=== PATIENT | male | born 1945 | race Caucasian/White ===

== ENCOUNTER 2018-03-06 13:40 | Emergency (ER) | payer MEDICARE, BC ==
[2018-03-06 13:55] VITALS: BP 153/68
--- NOTE | 2018-03-06 13:59 | UC ---
Throat Pain/Nasal Terry HPI - HPI Summary HPI Summary: 73 yo male presents with sore throat that began 3 days ago. Pain is getting worse. He is worried that he might have strep. Is able to eat and drink, but does have pain. Denies fever, chills, cough, SOB, chest pain, abdominal pain, n/ v. - History of Current Complaint Chief Complaint: UCGeneralIllness Stated Complaint: SORE THROAT Time Seen by Provider: 03/06/18 13:57 Hx Obtained From: Patient Onset/Duration: Sudden Onset Severity: Severe Pain Intensity: 8 Pain Scale Used: 0-10 Numeric - Allergies/Home Medications Allergies/Adverse Reactions: Allergies Allergy/AdvReac Type Severity Reaction Status Date / Time codeine Allergy Nausea And Verified 03/06/18 13:55 Vomiting Home Medications: Home Medications Metoprolol Succinate XL TAB* [Toprol XL TAB*] 100 mg PO BID 03/06/18 [History Confirmed 03/06/18] Conway-3/Dha/Epa/Fish Oil [Conway 3 500 500 mg] 1 cap PO DAILY 03/06/18 [History Confirmed 03/06/18] PMH/Surg Hx/FS Hx/Imm Hx - Additional Past Medical History Additional PMH: BPH Endocrine History: Dyslipidemia Cardiovascular History: Hypertension - Surgical History Surgical History: Yes Surgery Procedure, Year, and Place: 2009 cardiac. 03/2012 discectomy neck - Family History Known Family History: Positive: Hypertension - Social History Occupation: Retired Lives: With Family Alcohol Use: None Substance Use Type: None Smoking Status (MU): Former Smoker - Immunization History Most Recent Influenza Vaccination: none Review of Systems Constitutional: Negative Skin: Negative Eyes: Negative ENT: Sore Throat Respiratory: Negative Cardiovascular: Negative Neurovascular: Negative Neurological: Negative Psychological: Negative All Other Systems Reviewed And Are Negative: Yes Physical Exam - Summary Physical Exam Summary: GENERAL: NAD. WDWN. No pain distress. SKIN: No rashes, sores, lesions, or open wounds. HEENT: Head: AT/NC Eyes: Conjunctiva clear without inflammation or discharge. Ears: Hearing grossly normal. TMs intact, no bulging, erythema, or edema. Nose: Nasal mucosa pink and moist. NTTP maxillary and frontal sinus. Throat: Posterior oropharynx without erythema or tonsillar enlargement. Mild edema right oropharynx. No exudates. Uvula midline. No hoarse voice or muffled voice. NECK: Supple. 1.0cm right tonsillar LAD TTP. CHEST: CTAB. No r/r/w. No accessory muscle use. Breathing comfortably and in no distress. CV: RRR. Without m/r/g. Pulses intact. Brisk cap refill. NEURO: Alert. CN II-XII grossly intact. PSYCH: Age appropriate behavior. Triage Information Reviewed: Yes Vital Signs: Initial Vital Signs Temp 99.4 F 03/06/18 13:52 Pulse 80 03/06/18 13:52 Resp 14 03/06/18 13:52 BP 153/68 03/06/18 13:52 Pulse Ox 97 03/06/18 13:52 Throat Pain/Nasal Course/Dx - Course Course Of Treatment: POC strep negative. Low suspicion for abscess, but will cover with amoxicillin. Rx for magic mouthwash for pain. F/u if no improvement - Differential Dx/Diagnosis Provider Diagnoses: Pharyngitis Discharge - Sign-Out/Discharge Documenting (check all that apply): Discharge/Admit/Transfer - Discharge Plan Condition: Stable Disposition: HOME Prescriptions: Amoxicillin PO (*) [Amoxicillin 500 MG CAP*] 500 mg PO Q12H #14 cap Magic Mouth Was-DEE/MAAL/LIDO* 5 ml SWISH SWAL QID PRN #100 ml PRN Reason: Pain Patient Education Materials: Pharyngitis (ED) Referrals: Jason Wilkins DO [Primary Care Provider] - Additional Instructions: If you develop a fever, shortness of breath, chest pain, new or worsening symptoms - please call your PCP or go to the ED. Your blood pressure was high at todays visit. Please see your primary provider within 4 weeks for recheck and re-evaluation. - Billing Disposition and Condition Condition: STABLE Disposition: HOME
== END 2018-03-06 14:22 | disposition home or self-care (01) ==
LOC: UCCORT 13:40
DX: J02.9 Acute pharyngitis, unspecified (principal); Z88.5 Allergy status to narcotic agent; I10 Essential (primary) hypertension; Z87.891 Personal history of nicotine dependence
CPT/HCPCS: 87651; 99212; G0463

== ENCOUNTER 2019-05-24 19:56 | Emergency (ER) | payer MEDICARE, BC ==
[2019-05-24 20:29] VITALS: BP 130/69
[2019-05-24] MEDS ORDERED: DOXYcycline CAP(*) 100 MG PO ONE (20:48)
--- NOTE | 2019-05-24 20:48 | UC ---
General HPI - HPI Summary HPI Summary: pt found a tick on his abdomen and tried to dig it out with tweezers. he thinks a black spot remains. it may have been attached for 2 days. - History of Current Complaint Chief Complaint: Marla Stated Complaint: TICK Time Seen by Provider: 05/24/19 20:41 Hx Obtained From: Patient Pain Intensity: 0 Associated Signs & Symptoms: Negative: Fever, Weakness - Allergy/Home Medications Allergies/Adverse Reactions: Allergies Allergy/AdvReac Type Severity Reaction Status Date / Time codeine AdvReac Nausea And Verified 05/24/19 20:23 Vomiting Home Medications: Home Medications Aspirin EC TAB* [Ecotrin EC Low Dose 81 MG*] 81 mg PO DAILY 05/24/19 [History Confirmed 05/24/19] Clopidogrel TAB* [Plavix TAB*] 75 mg PO DAILY 05/24/19 [History Confirmed ] Diltiazem CD CAP* [Cardizem CD CAP*] 120 mg PO DAILY 05/24/19 [History Confirmed 05/24/19] Losartan/HCTZ 100/25 (NF) [Hyzaar 100/25 (NF)] 1 tab PO DAILY 05/24/19 [History Confirmed 05/24/19] Moreland-3 Fatty Acids (Nf) [Fish Oil (NF)] 1,000 mg PO DAILY 05/24/19 [History Confirmed 05/24/19] Spironolactone TAB* [Aldactone TAB*] 25 mg PO DAILY 05/24/19 [History Confirmed 05/24/19] Tamsulosin CAP* [Flomax CAP*] 0.4 mg PO BID 05/24/19 [History Confirmed 05/24/19 ] Vitamin THERAPEUTIC TAB* [Theragran TAB*] 1 tab PO DAILY 05/24/19 [History Confirmed 05/24/19] PMH/Surg Hx/FS Hx/Imm Hx - Additional Past Medical History Additional PMH: BPH Cardiovascular History: Hypertension, Other - CAD - Surgical History Surgical History: Yes Surgery Procedure, Year, and Place: 2009 cardiac. 03/2012 discectomy neck - Family History Known Family History: Positive: Hypertension - Social History Lives: With Family Alcohol Use: None Substance Use Type: None Smoking Status (MU): Never Smoked Tobacco - Immunization History Most Recent Influenza Vaccination: none Review of Systems All Other Systems Reviewed And Are Negative: No Constitutional: Negative: Fever, Chills, Fatigue Skin: Negative: Rash Physical Exam Triage Information Reviewed: Yes Appearance: Well-Appearing Vital Signs: Initial Vital Signs Temp 98.5 F 05/24/19 20:20 Pulse 68 05/24/19 20:20 Resp 16 05/24/19 20:20 BP 130/69 05/24/19 20:20 Pulse Ox 99 05/24/19 20:20 Vital Signs Reviewed: Yes Musculoskeletal: Positive: ROM Intact Neurological: Positive: Alert Psychological: Positive: Age Appropriate Behavior Skin Exam: Normal, Other - pt has a deep abrasion to his upper abdomen with scant clear fluid/bldding. No black specs seen. Course/Dx - Course Course Of Treatment: wound washed with soap and water. - Diagnoses Provider Diagnosis: Tick bite of abdominal wall Discharge - Sign-Out/Discharge Documenting (check all that apply): Patient Departure All imaging exams completed and their final reports reviewed: No Studies - Discharge Plan Condition: Stable Disposition: HOME Patient Education Materials: Tick Bite (ED) Referrals: Jason Wilkins DO [Primary Care Provider] - If Needed - Billing Disposition and Condition Condition: STABLE Disposition: Home
--- OUTSIDE RECORDS SUMMARY | 2019-05-24 23:31 | XMS REPORT | Continuity of Care Document ---
:1945 External Reference #:[id number] Author Name Mickey Aguilera M.D., [facility] Address [address] [place] [address] Care Team Providers Name Role Phone Jason Wilkins, Care Team Information Phy Therapist Unavailable Jason Wilkins, Primary Care Physician Unavailable Payers Date Identification Numbers Payment Provider Subscriber Policy Number: [id number] Medicare Lyle D Nelson PayID: [id number] [address] [place] [address] Policy Number: [id number] [facility] Rick Gunter PayID: [id number] [address] [address] [place] [address] Effective: 2012 Policy Number: [id number] Medicare Lyle D Nelson Expires: 2019 PayID: [id number] [address] [facility] [place] [address] Effective: 2009 Policy Number: [id number] [facility] Rick Gunter Expires: 2011 PayID: [id number] [address] [address] [place] [address] Problems Active Problems Provider Date Hyperlipidemia Lalo Carlos MD, PhD Onset: 02/17/2011 Benign essential hypertension Lalo Carlos MD, PhD Onset: 02/17/2011 Coronary arteriosclerosis Lalo Carlos MD, PhD Onset: 02/17/2011 Chest pain Lalo Carlos MD, PhD Onset: 12/14/2012 Abnormal results of cardiovascular Lalo Carlos MD, PhD Onset: 12/14/2012 function studies Palpitations Selene Soares ANP Onset: 12/14/2012 Lymphedema Selene Soares ANP Onset: 03/28/2014 Syncope and collapse Mickey Aguilera M.D., Onset: 10/22/2018 [facility] Dyspnea Mickey Aguilera M.D., Onset: 09/29/2018 [facility] Essential hypertension Ale Becker, MSN, Onset: 01/01/2016 DUL[facility]ER Left bundle branch block Mickey Aguilera M.D., Onset: 11/09/2014 [facility] Family History Date Family Member(s) Observation Comments General No known family history of CAD. Social History Type Date Description Comments Sex Unknown Lives With Teresa Cruz Patient follows no dietary restrictions Occupation Retired ADL's/IADL's Independent with all IADL's ADL's/IADL's Independent with all ADL's ETOH Use Denies alcohol use Tobacco Use Start: Unknown Patient does not smoke Smoking Status Reviewed: 05/12/19 Patient does not smoke Allergies, Adverse Reactions, Alerts Active Allergies Reaction Severity Comments Date Narcotics 11/09/2014 Medications Active Medications SIG Qnty Indications Ordering Provider Date Spironolactone 1 by mouth 30tabs Mickey Aguilera 01/24/2019 25mg Tablets every day Anaya Gambino, [facility] Losartan 1 by mouth 90tabs Mickey Aguilera 10/22/2018 Potassium/Hydrochlorothi every day Anaya Gambino, [facility] azide 100-25mg Tablets Plavix 1 by mouth 7tabs Mickey Aguilera 09/29/2018 75mg Tablets every day Anaya Gambino, [facility] Atorvastatin Calcium 1 by mouth 90tabs E78.4 Mickey Aguilera 02/06/2016 20mg every day Anaya Gambino, [facility] Tablets Multi For Him 1 by mouth Unknown Tablets every day Tamsulosin HCL 1 by mouth 30caps Unknown 0.4mg Capsules twice a day Fish Oil 3 by mouth Unknown 1200mg Capsules every day Aspirin Adult Low Dose 1 by mouth Unknown 81mg every day Tablets DR Dilt-XR 1 by mouth 90caps I49.3 Mickey Aguilera 240mg Caps ER 24HR every day Anaya Gambino, [facility] History Medications Metoprolol Succinate ER 1 by mouth Mickey Aguilera 10/22/2018 - 25mg every day Anaya Gambino, [facility] 10/22/2018 Tablets ER 24HR Dilt-XR 1 by mouth 90caps I49.3 Mickey Aguilera 01/23/2016 - 120mg Caps ER 24HR every day Anaya Gambino, [facility] 12/01/2018 Gabapentin one po tid 90tabs Herrera Llanes, 12/06/2013 - 600mg Tablets Unknown Gabapentin 1 po tid 42caps Herrera Llanes, 11/22/2013 - 300mg Capsules MD 12/05/2013 Losartan Potassium po qd 90tabs Lalo Carlos, 09/23/2013 - 100mg Tablets MD, PhD 10/22/2018 Ibuprofen po tid prn 20tabs Lalo Carlos, 08/15/2010 - 800mg Tablets , PhD Unknown Atacand Take 1 Tablet 90tabs Lalo Carlos, 08/14/2010 - 8mg Tablets By Mouth Every , PhD Unknown Day Vitamin B-12 1 by mouth Unknown - 500mcg Tablets Sub every day Unknown Complete Prostate (OTC) 2 tabs daily. Unknown - Unknown Coq10 St-100 1 po daily Unknown - [id number] Unknown Capsules Ibuprofen 1 by mouth 30tabs Unknown - 800mg Tablets every 6 hours Unknown as needed for pain use as first line pain control Gabapentin 1/2 tab po tid Unknown - 600mg Tablets Unknown Losartan Potassium 1 po qd 90tabs Unknown - 50mg Tablets 09/23/2013 Gabapentin 1 po tid Unknown - 300mg Capsules Unknown Tramadol HCL 1 po q6h prn 20tabs Unknown - 50mg Tablets Unknown Finasteride 1 po qd 30tabs Unknown - 5mg Tablets Unknown Simvastatin 1 po qhs E78.4 Unknown - 40mg Tablets 02/06/2016 Ramipril 1 po qd Unknown - 5mg Capsules Unknown Omeprazole 1 po qd 30caps Lalo Carlos, - 20mg Capsules DR NARAYAN, PhD Unknown Docusate Sodium 1 po bid Lalo Carlos, - 100mg Capsules , PhD Unknown Aspirin Ec 1 po qd Davidenko, Mickey - 325mg Tablets DR Maki M.D., FACC Unknown Simvastatin 1 po qd 30tabs Julianenko, Mickey - 20mg Tablets Anaya Gambino, FACC 02/17/2011 Baby Aspirin 1 po qd Davidenko, Mickey - 81mg Chewtabs Anaya Gambino, FACC Unknown Ramipril 1 po qd 30caps Julianenko, Mickey - 10mg Capsules Anaya Gambino, FACC Unknown Multivitamins 1 po qd Davidenko, Mickey - Tablets Anaya Gambino, FACC Unknown Fish Oil po bid Davidenko, Mickey - 1000mg Capsules Anaya Gambino, FACC 09/29/2018 Metoprolol Succinate ER 1 po bid Davidenko, Mickey - 100mg Anaya Gambino, FACC 10/22/2018 Tablets ER 24HR Hydrochlorothiazide 1 po qd 30caps Julianenko, Mickey - 12.5mg Anaya Gambino, FACC Unknown Capsules Tamsulosin HCL po qd Davidenko, Mickey - 0.4mg Capsules Anaya Gambino, FACC Unknown Vital Signs Date Vital Result Comment 05/12/2019 9:45am BP Systolic Sitting Left Arm 133 mmHg BP Diastolic Sitting Left Arm 74 mmHg Heart Rate 69 /min Respiratory Rate 20 /min Weight 251.00 lb O2 % BldC Oximetry 96 % ora 11/08/2018 1:05pm BP Systolic Sitting Left Arm 137 mmHg BP Diastolic Sitting Left Arm 73 mmHg Heart Rate 72 /min Respiratory Rate 16 /min Height 70 inches 5'10" Weight 264.00 lb BMI (Body Mass Index) 37.9 kg/m2 BSA (Body Surface Area) 2.35 m2 [place] body weight in kilograms 75 kg O2 % BldC Oximetry 95 % Ra 10/22/2018 9:58am BP Systolic 149 mmHg BP Diastolic 75 mmHg Heart Rate 61 /min Respiratory Rate 16 /min Height 70 inches 5'10" Weight 265.00 lb BMI (Body Mass Index) 38.0 kg/m2 BSA (Body Surface Area) 2.35 m2 [place] body weight in kilograms 75 kg O2 % BldC Oximetry 98 % 09/29/2018 11:07am BP Systolic Sitting Left Arm 174 mmHg BP Diastolic Sitting Left Arm 88 mmHg Heart Rate 56 /min Respiratory Rate 18 /min Height 70 inches 5'10" Weight 272.00 lb BMI (Body Mass Index) 39.0 kg/m2 BSA (Body Surface Area) 2.38 m2 [place] body weight in kilograms 75 kg O2 % BldC Oximetry 97 % Ora 02/25/2018 2:57pm BP Systolic Sitting Left Arm 154 mmHg BP Diastolic Sitting Left Arm 82 mmHg Heart Rate 50 /min Respiratory Rate 16 /min Height 70 inches 5'10" Weight 266.00 lb BMI (Body Mass Index) 38.2 kg/m2 BSA (Body Surface Area) 2.36 m2 [place] body weight in kilograms 75 kg 02/19/2017 2:42pm BP Systolic Sitting Left Arm 142 mmHg BP Diastolic Sitting Left Arm 80 mmHg Heart Rate 61 /min Respiratory Rate 18 /min Height 70 inches 5'10" Weight 266.00 lb BMI (Body Mass Index) 38.2 kg/m2 BSA (Body Surface Area) 2.36 m2 [place] body weight in kilograms 75 kg 08/07/2016 1:04pm BP Systolic Sitting Left Arm 150 mmHg BP Diastolic Sitting Left Arm 88 mmHg Heart Rate 77 /min Height 70 inches 5'10" Weight 266.00 lb BMI (Body Mass Index) 38.2 kg/m2 BSA (Body Surface Area) 2.36 m2 02/06/2016 9:02am BP Systolic Sitting Left Arm 156 mmHg BP Diastolic Sitting Left Arm 80 mmHg Heart Rate 66 /min Respiratory Rate 16 /min Height 70 inches 5'10" Weight 265.00 lb BMI (Body Mass Index) 38.0 kg/m2 BSA (Body Surface Area) 2.35 m2 01/23/2016 8:08am BP Systolic Sitting Left Arm 168 mmHg our machine 164/83 BP Diastolic Sitting Left Arm 84 mmHg our machine 164/83 Heart Rate 57 /min Respiratory Rate 16 /min Height 70 inches 5'10" Weight 267.00 lb BMI (Body Mass Index) 38.3 kg/m2 BSA (Body Surface Area) 2.36 m2 01/01/2016 8:04am BP Systolic Sitting Left Arm 152 mmHg BP Diastolic Sitting Left Arm 86 mmHg Heart Rate 67 /min Respiratory Rate 16 /min Height 70 inches 5'10" Weight 263.00 lb BMI (Body Mass Index) 37.7 kg/m2 BSA (Body Surface Area) 2.34 m2 05/10/2015 9:36am BP Systolic Sitting Left Arm 162 mmHg BP Diastolic Sitting Left Arm 90 mmHg Heart Rate 64 /min Respiratory Rate 16 /min Height 70 inches 5'10" Weight 257.00 lb BMI (Body Mass Index) 36.9 kg/m2 BSA (Body Surface Area) 2.32 m2 11/09/2014 10:44am BP Systolic Sitting Right Arm 178 mmHg BP Diastolic Sitting Right Arm 86 mmHg Heart Rate 51 /min Respiratory Rate 16 /min Height 70 inches 5'10" Weight 264.00 lb BMI (Body Mass Index) 37.9 kg/m2 BSA (Body Surface Area) 2.35 m2 03/27/2014 8:33am BP Systolic Sitting Left Arm 152 mmHg BP Diastolic Sitting Left Arm 78 mmHg Heart Rate 62 /min Respiratory Rate 16 /min Height 70 inches 5'10" Weight 261.00 lb BMI (Body Mass Index) 37.4 kg/m2 BSA (Body Surface Area) 2.34 m2 BP Systolic Recheck 138 mmHg BP Diastolic Recheck 72 mmHg 11/22/2013 3:02pm BP Systolic Sitting Left Arm 176 mmHg BP Diastolic Sitting Left Arm 86 mmHg Heart Rate 62 /min Respiratory Rate 18 /min Height 70 inches 5'10" Weight 257.00 lb BMI (Body Mass Index) 36.9 kg/m2 BSA (Body Surface Area) 2.32 m2 O2 % BldC Oximetry 97 % 10/13/2013 10:59am BP Systolic Sitting Left Arm 176 mmHg BP Diastolic Sitting Left Arm 94 mmHg Heart Rate 59 /min Height 70 inches 5'10" Weight 253.00 lb BMI (Body Mass Index) 36.3 kg/m2 BSA (Body Surface Area) 2.31 m2 09/23/2013 2:45pm BP Systolic Sitting Right Arm 148 mmHg BP Diastolic Sitting Right Arm 82 mmHg Heart Rate 53 /min Respiratory Rate 18 /min Height 69.25 inches 5'9.25" Weight 258.00 lb BMI (Body Mass Index) 37.8 kg/m2 BSA (Body Surface Area) 2.31 m2 12/13/2012 2:18pm BP Systolic Sitting Left Arm 146 mmHg BP Diastolic Sitting Left Arm 82 mmHg Heart Rate 66 /min Respiratory Rate 16 /min Height 69.25 inches 5'9.25" Weight 253.00 lb BMI (Body Mass Index) 37.1 kg/m2 11/11/2012 10:06am BP Systolic Sitting Right Arm 144 mmHg BP Diastolic Sitting Right Arm 80 mmHg Heart Rate 76 /min Respiratory Rate 16 /min Height 69.25 inches 5'9.25" Weight 250.00 lb BMI (Body Mass Index) 36.6 kg/m2 BP Systolic Recheck 132 mmHg BP Diastolic Recheck 80 mmHg 11/11/2012 3:36pm BP Systolic Sitting Right Arm 144 mmHg BP Diastolic Sitting Right Arm 80 mmHg Heart Rate 76 /min reg Respiratory Rate 16 /min Height 69.25 inches 5'9.25" Weight 250.00 lb BMI (Body Mass Index) 36.6 kg/m2 05/07/2012 2:06pm BP Systolic Sitting Right Arm 138 mmHg BP Diastolic Sitting Right Arm 72 mmHg Heart Rate 76 /min Respiratory Rate 16 /min Height 69.25 inches 5'9.25" Weight 246.00 lb BMI (Body Mass Index) 36.1 kg/m2 03/12/2012 1:20pm BP Systolic Sitting Right Arm 118 mmHg BP Diastolic Sitting Right Arm 58 mmHg Heart Rate 63 /min Respiratory Rate 16 /min Height 69.25 inches 5'9.25" Weight 245.00 lb BMI (Body Mass Index) 35.9 kg/m2 09/25/2011 12:59pm BP Systolic Sitting Left Arm 142 mmHg BP Diastolic Sitting Left Arm 82 mmHg Heart Rate 64 /min regular Respiratory Rate 16 /min Height 69.25 inches 5'9.25" Weight 247.00 lb BMI (Body Mass Index) 36.2 kg/m2 08/21/2011 2:13pm BP Systolic Sitting Right Arm 140 mmHg BP Diastolic Sitting Right Arm 72 mmHg Heart Rate 72 /min Respiratory Rate 16 /min Height 69.25 inches 5'9.25" Weight 245.00 lb BMI (Body Mass Index) 35.9 kg/m2 02/17/2011 2:36pm BP Systolic Sitting Right Arm 132 mmHg BP Diastolic Sitting Right Arm 68 mmHg Heart Rate 72 /min regular Respiratory Rate 16 /min Height 69.25 inches 5'9.25" Weight 240.00 lb BMI (Body Mass Index) 35.2 kg/m2 08/23/2010 8:55am BP Systolic Sitting Left Arm 130 mmHg BP Diastolic Sitting Left Arm 72 mmHg Heart Rate 64 /min Regular Respiratory Rate 16 /min Weight 240.00 lb 07/23/2010 8:33am BP Systolic Sitting Right Arm 124 mmHg BP Diastolic Sitting Right Arm 68 mmHg Heart Rate 60 /min Respiratory Rate 16 /min Height 69.25 inches 5'9.25" Weight 239.00 lb BMI (Body Mass Index) 35.0 kg/m2 06/28/2010 2:32pm Heart Rate 62 /min Respiratory Rate 16 /min Weight 244.00 lb 06/14/2010 1:12pm Heart Rate 60 /min Respiratory Rate 16 /min Weight 239.00 lb Results Test Date Facility Test Result H/L Range Note CBC 04/26/2019 [facility] White Blood 5.1 K/uL Normal 3.4-10.5 1 W/Automated [address] Count Diff [place], [place] [id number] [phone] Red Blood Count 4.78 M/uL Normal 4.20-5.80 Hemoglobin 14.5 gm/dL Normal 12.8-17.0 Hematocrit 41.8 % Normal 38.0-48.0 Mean Cell Volume 87.4 fl Normal 80.0-96.0 Mean Corpuscular HGB 30.3 pg Normal 27.0-33.0 Mean Corpuscular HGB Conc 34.7 g/dL Normal 31.7-36.0 Platelet Count 214 K/uL Normal 155-360 Red Cell Distri Width SD 44.7 fl Normal 36-51 Red Cell Distri Width %CV 13.9 % Normal 11.6-15.8 Mean Platelet Volume 9.4 fl Normal 6.6-10.6 Neut% 50.1 % Normal 33.0-73.0 Lymph % 33.2 % Normal 20.0-42.0 Burt % 12.5 % High 0.0-10.0 Eo% 3.8 % Normal 0.0-6.6 Bas% 0.2 % Normal 0.0-1.1 Immature Grans 0.2 % Normal 0.0-5.0 NRBC % 0.0 /100WBC < 10/ 100 WBC Neut# 2.54 K/uL Normal 1.8-7.0 Lymph # 1.68 K/uL Normal 1.0-4.0 Burt # 0.63 K/uL Normal 0.0-0.8 Eos # 0.19 K/uL Normal 0.0-0.5 Baso # 0.01 K/uL Normal 0.0-0.1 Immature Grans Absolute 0.01 K/uL NRBC # 0.00 K/uL Liver Function 04/26/2019 [facility] Total Protein 7.4 g/dL Normal 6.4-8.2 Tests [address] [place] [address] [phone] Albumin 3.9 g/dL Normal 3.4-5.0 Globulin 3.5 g/dL Normal 1.9-4.3 Alb/Glob 1.1 ratio Bilirubin,Total 0.3 mg/dL Normal 0.2-1.0 Bilirubin,Direct 0.1 mg/dL Normal 0.0-0.2 Bilirubin,Indirect 0.2 mg/dL Normal 0.0-0.9 Sgot/Ast 28 U/L Normal 15-37 SGPT/Alt 42 U/L Normal 12-78 Alkaline Phosphatase 57 U/L Normal 45-117 Basic Metabolic Panel 04/26/2019 [facility] Glucose 107 mg/dL High 74-106 [address] [place] [address] [phone] BUN 25 mg/dL High 7-18 Creatinine 0.8 mg/dL Normal 0.6-1.3 Glom Filtration Rate, Estimate >60 mL/min >60 If >60 mL/min >60 2 BUN/Creat 31.2 ratio Sodium 137 mmol/L Normal 136-145 Potassium 3.9 mmol/L Normal 3.5-5.1 Chloride 104 mmol/L Normal 98-107 Carbon Dioxide 26 mmol/L Normal 21-32 Anion Gap 7 mEq/L Low 8-16 Calcium 9.4 mg/dL Normal 8.5-10.1 LDL Cholesterol Profile 04/26/2019 [facility] Cholesterol 122 mg/dL <200 3 [address] [place] [address] [phone] Triglycerides 54 mg/dL <150 4 HDL Cholesterol 42 mg/dL >40 5 LDL-Cholesterol 69 mg/dL < 100 6 Laboratory test 04/26/2019 [facility] Thyroid Stim 1.83 Normal 0.30-4.[address] Hormone uIU/[place] [address] [phone] Glycohemoglobin 04/26/2019 [facility] Glycohemoglobin 6.2 % Normal 4.2-6.[address] (A1c) [place] [address] [phone] eAG 131 mg/dL Laboratory test finding 10/18/2018 N2N/CCD Import Ao peak richard 1.44 m/s Ao root annulus 3.80 cm Aortic valve mean velocity 0.94 m/s Aortic valve velocity time integral 30.90 cm Av Lvot peak gradient 6.00 mmHg Av Velocity Ratio 0.86 Av mean gradient 4.00 mmHg Av peak gradient 8.00 mmHg Bsa 2.32 m2 Diastolic BP Echo 76.00 mmHg E wave decelartion time 366.00 ms E/A ratio 0.76 E/E' Lateral Ratio 8.20 no units Ef 83 % FS 49 % 28 - 44 Inferior Vena Cava Diameter 1.80 cm Ivs 0.98 cm 0.6 - 1.1 LA Area Sys (A2c) 19.50 cm2 LA Area Sys (A4c) 20.60 cm2 LA Esv (A2c) 51.00 cm3 LA size 3.83 cm LA volume 59.00 cm3 LA/Ao Ratio 1.13 no units LV Systolic Volume 20.30 cm3 LV Systolic Volume Index 8.8 mL/m2 Left Atrium [facility] [place] 4.30 cm Left atrial length medial-lateral (apical 4-chamber view) 6.07 cm Left atrial length superior-inferior (apical 2-chamber view) 5.59 cm Lvidd 5.34 cm 3.5 - 6.0 Lvids 2.73 cm 2.1 - 4.0 Lvot Mean Richard 0.87 m/s Lvot area 3.80 cm2 Lvot diameter 2.2 cm Lvot mn grad 4.0 mmHg Lvot peak Vti 27.10 cm Lvot peak richard 1.24 m/s Lvot stroke volume 102.96 cm3 MV E' Lateral Tissue Richard 0.09 m/s MV E' Tissue Velocity Lateral 0.06 m/s MV Peak A Richard 0.92 m/s MV Peak E Richard 0.70 m/s PW 1.14 cm 0.6 - 1.1 Pt Height 1.78 m RVDD 2.23 cm Systolic BP Echo 154.00 mmHg TV Mean Richard 0.94 m/s TV peak gradient 4.00 mmHg Tapse 3.54 cm Weight 116.20 kg pv Peak Velocity 0.95 m/s pv peak gradient 4.00 mmHg Laboratory test finding 10/18/2018 [employer] [facility] Anion Gap 8 mmol/L 7 - 16 BUN/Creatinine Ratio 23.3 High 10.0 - 20.0 Ratio Calcium 8.8 mg/dL 8.4 - 10.2 Chloride 104 mmol/L 100 - 108 Co2 28 mmol/L 22 - 31 Creatinine 0.90 mg/dL 0.80 - 1.30 GFR MDRD Af Amer >60 >59 ml/min/1.73m2 GFR MDRD Non Af Amer >60 >59 ml/min/1.73m2 Glucose 104 mg/dL High 70 - 99 Potassium 4.3 mmol/L 3.6 - 5.2 Sodium 140 mmol/L 136 - 145 Urea nitrogen 21 mg/dL 7 - 24 Laboratory test finding 10/18/2018 [employer] Import Hematocrit 45.6 % 41.0 - 53.0 Hemoglobin 15.2 g/dL 13.5 - 18.0 MCH 29.5 pg 27.0 - 32.0 MCHC 33.3 g/dL 32.0 - 36.0 MCV 88.4 fL 80.0 - 95.0 MPV 8.1 fL 7.1 - 10.7 Platelets 182 10*3/uL 150 - 450 RBC 5.16 10*6/uL 4.60 - 6.10 RDW 14.6 % High 10.5 - 14.5 WBC 5.9 10*3/uL 4.1 - 11.0 Laboratory test 10/17/2018 [employer] Import Vitamin B-12 1031 pg/mL High 193 - finding 986 Laboratory test 10/17/2018 [employer] Import Urine specimen Urine Specimen finding held in lab for Available In culture Lab For 24 Hours Laboratory test 10/17/2018 [employer] Import Appearance Clear finding Bilirubin, Ua Negative Negative Blood, Ua Negative Negative Color, Ua Yellow Glucose, Ua Negative Negative Ketones, Ua Negative Negative Leukocyte Esterase Negative Negative Nitrite, Ua Negative Negative Protein, Ua Negative Negative Specific [place], Ua 1.010 1.003 - 1.030 Urobilinogen, Ua 0.2 mg/dL 0 - 1.0 pH, Urine 7.5 5.0 - 7.5 Laboratory test 10/17/2018 [employer] Import D-dimer, sensitive 0.28 mg/L < 0.50 finding Laboratory test 10/17/2018 [employer] Import Est. Average 137 mg/dL finding Glucose Hemoglobin A1c 6.4 % High 4.0 - 6.0 Laboratory test 10/17/2018 [employer] Import Troponin I <0.06 0.00 - 0.10 finding ng/mL Laboratory test 10/17/2018 [employer] Import Free T4 0.83 ng/dL 0.76 - 1.46 finding TSH, High Sensitivity 1.852 0.360 - 4.170 mIU/L Laboratory test 10/16/2018 [employer] Import Poc Troponin I 0.02 ng/mL 0.00 - 0.10 finding Laboratory test 10/16/2018 [employer] Import Alb/Glob ratio 1.1 Ratio finding Albumin 4.1 g/dL 3.2 - 4.5 Alkaline Phosphatase 67 U/L 45 - 117 Alt 50 U/L 12 - 78 Anion Gap 6 mmol/L Low 7 - 16 Ast 28 U/L 11 - 39 BUN/Creatinine Ratio 23.3 High 10.0 - 20.0 Ratio Bilirubin, Total 0.4 mg/dL 0.0 - 1.0 Calcium 9.3 mg/dL 8.4 - 10.2 Chloride 103 mmol/L 100 - 108 Co2 31 mmol/L 22 - 31 Creatinine 0.86 mg/dL 0.80 - 1.30 GFR MDRD Af Amer >60 >59 ml/min/1.73m2 GFR MDRD Non Af Amer >60 >59 ml/min/1.73m2 Globulin 3.7 g/dL 2.7 - 4.3 Glucose 104 mg/dL High 70 - 99 NT-pro BNP 92 pg/mL 0 - 125 Potassium 4.1 mmol/L 3.6 - 5.2 Protein, Total 7.8 g/dL 6.4 - 8.2 Sodium 140 mmol/L 136 - 145 Urea nitrogen 20 mg/dL 7 - 24 Laboratory test finding 10/16/2018 N2N/CCD Import Inr 1.17 Protime 11.9 s 9.2 - 11.9 aPTT 24.4 s 22.0 - 34.3 Laboratory test 10/16/2018 N2N/CCD Import Basophils 0.0 10*3/uL 0.0 - 0.2 finding Absolute Basophils Relative 0.1 % 0.0 - 4.0 Eosinophils Absolute 0.1 10*3/uL 0.0 - 0.5 Eosinophils Relative 0.6 % 0.0 - 5.0 Hematocrit 46.4 % 41.0 - 53.0 Hemoglobin 15.5 g/dL 13.5 - 18.0 Lymphocytes Absolute 1.3 10*3/uL 1.2 - 4.8 Lymphocytes Relative 11.5 % Low 16.0 - 52.0 MCH 29.3 pg 27.0 - 32.0 MCHC 33.4 g/dL 32.0 - 36.0 MCV 87.7 fL 80.0 - 95.0 MPV 8.1 fL 7.1 - 10.7 Monocytes Absolute 0.6 10*3/uL 0.0 - 0.8 Monocytes Relative 5.8 % 0.0 - 8.0 Neutrophils % 82.0 % High 35.0 - 75.0 Neutrophils Absolute 9.0 10*3/uL High 1.8 - 7.7 Platelets 186 10*3/uL 150 - 450 RBC 5.29 10*6/uL 4.60 - 6.10 RDW 14.5 % 10.5 - 14.5 WBC 11.0 10*3/uL 4.1 - 11.0 Comprehensive Metabolic 09/29/2018 [facility] Glucose 107 mg/dL High 74-106 8 Panel [address] [place] [address] [phone] BUN 17 mg/dL Normal 7-18 Creatinine 0.9 mg/dL Normal 0.6-1.3 Glom Filtration Rate, Estimate >60 mL/min >60 If >60 mL/min >60 9 BUN/Creat 18.8 ratio Sodium 141 mmol/L Normal 136-145 Potassium 4.3 mmol/L Normal 3.5-5.1 Chloride 105 mmol/L Normal 98-107 Carbon Dioxide 31 mmol/L Normal 21-32 Anion Gap 5 mEq/L Low 8-16 Calcium 8.8 mg/dL Normal 8.5-10.1 Total Protein 7.2 g/dL Normal 6.4-8.2 Albumin 3.7 g/dL Normal 3.4-5.0 Globulin 3.5 g/dL Normal 1.9-4.3 Alb/Glob 1.1 ratio Bilirubin,Total 0.2 mg/dL Normal 0.2-1.0 Sgot/Ast 19 U/L Normal 15-37 SGPT/Alt 42 U/L Normal 12-78 Alkaline Phosphatase 58 U/L Normal 45-117 CBC W/Automated 09/29/2018 [facility] White Blood 6.2 K/uL Normal 3.4-10.[address] [place] [address] [phone] Red Blood Count 5.02 M/uL Normal 4.20-5.80 Hemoglobin 14.8 gm/dL Normal 12.8-17.0 Hematocrit 44.1 % Normal 38.0-48.0 Mean Cell Volume 87.8 fl Normal 80.0-96.0 Mean Corpuscular HGB 29.5 pg Normal 27.0-33.0 Mean Corpuscular HGB Conc 33.6 g/dL Normal 31.7-36.0 Platelet Count 184 K/uL Normal 155-360 Red Cell Distri Width SD 45.5 fl Normal 36-51 Red Cell Distri Width %CV 14.4 % Normal 11.6-15.8 Mean Platelet Volume 9.4 fL Normal 6.6-10.6 Neut% 49.2 % Normal 33.0-73.0 Lymph % 34.4 % Normal 20.0-42.0 Burt % 13.3 % High 0.0-10.0 Eo% 2.9 % Normal 0.0-6.6 Bas% 0.2 % Normal 0.0-1.1 Neut# 3.03 K/uL Normal 1.8-7.0 Lymph # 2.12 K/uL Normal 1.0-4.0 Burt # 0.82 K/uL High 0.0-0.8 Eos # 0.18 K/uL Normal 0.0-0.5 Baso # 0.01 K/uL Normal 0.0-0.1 LDL Cholesterol 02/07/2011 [facility] Cholesterol 137 mg/dL 120-[address] [place] [address] [phone] Triglycerides 69 mg/dL 0-210 HDL Cholesterol 38 mg/dL 32-96 LDL-Cholesterol 85 mg/dL 62-185 Liver Function Tests 02/07/2011 [facility] Total Protein 7.2 g/dL 6.3-8.[address] [place] [address] [phone] Albumin 4.1 g/dL 3.5-5.0 Bilirubin,Total 0.6 mg/dL 0.2-1.2 Bilirubin,Direct 0.1 mg/dL 0.1-0.4 Bilirubin,Indirect 0.5 mg/dL 0.0-0.9 Sgot/Ast 24 U/L 16-40 SGPT/Alt 47 U/L 30-65 Alkaline Phosphatase 103 U/L 50-136 Globulin 3.1 gm/dL 1.9-4.3 Alb/Glob 1.3 CBS W/Automated Diff 06/28/2010 [facility] White Blood 8.6 K/uL 3.4-10.[address] [place] [address] [phone] Red Blood Count 5.14 M/uL 4.20-5.80 Hemoglobin 15.3 gm/dL 12.8-17.0 Hematocrit 44.7 % 38.0-48.0 Mean Cell Volume 87.0 fl 80.0-96.0 Mean Corpuscular HGB 29.8 pg 27.0-33.0 Mean Corpuscular HGB Conc 34.2 g/dL 31.7-36.0 Platelet Count 195 K/uL 150-400 Red Cell Distri Width %CV 14.2 % 11.6-15.8 Mean Platelet Volume 9.4 fL 6.6-10.6 Neut% 59.1 % 33.0-73.0 Lymph % 26.0 % 17.0-56.0 Burt % 11.1 % High 0.0-10.0 Eo% 3.7 % 0.0-5.0 Bas% 0.1 % 0.1-1.0 Neut# 5.1 K/uL 1.8-7.0 Lymph # 2.2 K/uL 1.2-4.0 Burt # 1.0 K/uL High 0.0-0.6 Eos # 0.3 K/uL 0.0-0.5 Baso # 0.0 K/uL Low 0.1-0.2 Red Cell Distri Width SD 45 fl 36-51 Basic Metabolic Panel 06/28/2010 [facility] Glucose 116 mg/dL High 76-115 [address] [place] [address] [phone] BUN 21 mg/dL 5-23 Creatinine 1.0 mg/dL 0.5-1.4 Glom Filtration Rate, Estimate >60 mL/min >60 If >60 mL/min >60 10 BUN/Creat 21.0 Sodium 141 mEq/L 136-145 Potassium 4.1 mEq/L 3.5-5.1 Chloride 103 mEq/L 98-107 Carbon Dioxide 31 mEq/L 21-32 Anion Gap 11 mEq/L 8-16 Calcium 9.3 mg/dL 8.5-10.1 Laboratory test 06/14/2010 [facility] Thyroid Stim 0.79 uIU/mL 0.49-4.67 11 finding [address] [place] [address] [phone] 1 I10 R73.01 2 Note: Persistent reduction for 3 months or more in an eGFR <60 mL/min/1.73 m2 defines CKD. Patients with eGFR values >/=60 mL/min/1.73 m2 may also have CKD if evidence of persistent proteinuria is present. The original MDRD equation for estimated GFR is not valid for patients less than 18 years of age. Additional information may be found at www.kdoqi.org. 3 Reference Guidelines*: Desirable: ........... < 200 mg/dL Borderline High: ..... 200-239 mg/dL High: ................ >=240 mg/dL * The National Cholesterol Education Program (NCEP) 4 Reference Guidelines*: Normal: ............. < 150 mg/dL Borderline High: .... 150-199 mg/dL High: ............... 200-499 mg/dL Very High: .......... > 500 mg/dL * Source: National Cholesterol Education Program (NCEP) 5 Reference Guidelines*: Low HDL: ..... < 40 mg/dL Normal: ..... 40-60 mg/dL Desirable: ... > 60 mg/dL *The National Cholesterol Education Program(NCEP) 6 Reference Guidelines*: Optimal:........... <100 mg/dL Near Optimal....... 100-129 mg/dL Borderline High.... 130-159 mg/dL High............... 160-189 mg/dL Very High.......... >=190 mg/dL * Source: National Cholesterol Education Program (NCEP) 7 Elevated levels of HbA1c suggest the need for more aggressive treatment of glycemia. The [place] [employer] recommends that a primary goal of therapy should be a HbA1c of <7% and that physicians should re-evaluate the treatment regimen in patients with HbA1c values consistently >8%. 8 I25.10 9 Note: Persistent reduction for 3 months or more in an eGFR <60 mL/min/1.73 m2 defines CKD. Patients with eGFR values >/=60 mL/min/1.73 m2 may also have CKD if evidence of persistent proteinuria is present. The original MDRD equation for estimated GFR is not valid for patients less than 18 years of age. Additional information may be found at www.kdoqi.org. 10 Note: Persistent reduction for 3 months or more in an eGFR <60 mL/min/1.73 m2 defines CKD. Patients with eGFR values >/=60 mL/min/1.73 m2 may also have CKD if evidence of persistent proteinuria is present. The original MDRD equation for estimated GFR is not valid for patients less than 18 years of age. Additional information may be found at www.kdoqi.org. 11 QUERY: @EMR Pat ID: QUERY: @EMR Req #: Procedures Date Code Description Status 01/17/2019 30241 [employer]plantable [employer] Heart Rhythm Completed Derived Data 10/22/2018 68273 EKG-Tracing And Report Completed 09/15/2018 81195 Stress Test Interpre And Report Only Completed 09/15/2018 02082 Stress Test Physician Super Only Completed 09/15/2018 54177 Myocardial Imaging Tomographic Multiple Study AT Rest Completed Or Stress 02/25/2018 39319 EKG-Tracing And Report Completed 02/19/2017 11104 EKG-Tracing And Report Completed 01/07/2016 87026 Holter Monitor 24HR Inter/Report Completed 01/07/2016 97561 Stress Test Interpre And Report Only Completed 01/07/2016 21371 Stress Test Physician Super Only Completed 01/07/2016 78462 Stress Test Physician Super Only Completed 01/07/2016 96077 Myocardial Imaging Tomographic Multiple Study AT Rest Completed Or Stress 01/01/2016 66998 EKG-Tracing And Report Completed 01/01/2015 02465 Echocardiogram Complete Completed 11/09/2014 95559 EKG-Tracing And Report Completed 05/26/2013 [id number] Mammogram Completed 12/08/2012 80592 Stress Test Interpre And Report Only Completed 12/08/2012 18419 Myocardial Imaging Tomographic Multiple Study AT Rest Completed Or Stress 12/08/2012 49919 Stress Test Physician Super Only Completed 12/08/2012 43686 Stress Test Physician Super Only Completed 03/22/2012 73064 Stress Test Interpre And Report Only Completed 03/22/2012 06247 Stress Test Physician Super Only Completed 03/22/2012 17886 Stress Test Physician Super Only Completed 03/22/2012 78535 Myocardial Imaging Tomographic Multiple Study AT Rest Completed Or Stress 03/12/2012 41610 EKG-Tracing And Report Completed 09/08/2011 24468 Event Monitor Inter/Review Only Completed 08/06/2010 49905 Echocardiogram Complete Completed 08/06/2010 23219 EKG Interpretation And Report Only Completed 08/05/2010 09051 EKG Interpretation And Report Only Completed 07/23/2010 45336 EKG-Tracing And Report Completed 06/27/2010 80189 Echocardiogram Complete Completed 06/27/2010 17830 Stress Test Interpre And Report Only Completed 06/27/2010 61894 Stress Test Physician Super Only Completed 06/14/2010 64224 EKG-Tracing And Report Completed 06/06/2010 66819 Holter Monitor 24HR Inter/Report Completed Encounters Type Date Location Provider Dx Diagnosis Office Visit 05/12/2019 Cardiology Office Mickey Aguilera I25.10 [facility] 9:40a Bartolome Gambino., 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 I10 Essential (primary) hypertension I44.7 Left bundle-branch block, unspecified E78.5 Hyperlipidemia, unspecified R55 Syncope and collapse Office Visit 11/08/2018 1:00p [facility] [place], JOSE, disease of [place]UL[place] coronary artery w/o ang pctrs I44.7 Left bundle-branch block, unspecified R55 Syncope and collapse I10 Essential (primary) hypertension E78.5 Hyperlipidemia, unspecified Office Visit 10/22/2018 9:40a Cardiology Office Mickey Aguilera I25.10 Flor Gambino M.D., 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 I44.7 Left bundle-branch block, unspecified R55 Syncope and collapse I10 Essential (primary) hypertension Office Visit 09/29/2018 11:00a Cardiology Office Mickey Aguilera I25.10 Flor Gambino M.D., 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 R06.02 Shortness of breath R07.9 Chest pain, unspecified I44.7 Left bundle-branch block, unspecified I10 Essential (primary) hypertension Office Visit 02/25/2018 2:40p Cardiology Office Mickey Aguilera I25.10 Flor Gambino M.D., 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 I44.7 Left bundle-branch block, unspecified I10 Essential (primary) hypertension R00.2 Palpitations Office Visit 02/19/2017 2:20p Cardiology Office Mickey Aguilera I25.10 Flor Gambino M.D., 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 I44.7 Left bundle-branch block, unspecified I10 Essential (primary) hypertension E78.4 Other hyperlipidemia Office Visit 08/07/2016 1:00p [facility]iology [facility] [place], JOSE, disease of [place] coronary artery w/o ang pctrs I10 Essential (primary) hypertension E78.4 Other hyperlipidemia I44.7 Left bundle-branch block, unspecified I49.3 Ventricular premature depolarization Office Visit 02/06/2016 9:00a Cardiology Office Mickey Aguilera I25.10 Flor Gambino M.D., 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 R00.2 Palpitations E78.4 Other hyperlipidemia I44.7 Left bundle-branch block, unspecified I10 Essential (primary) hypertension Office Visit 01/23/2016 Cardiology Ale Becker I49.3 Ventricular 8:00a Office [place], JOSE, premature DULSER depolarization I25.10 Athscl heart disease of [place] coronary artery w/o ang pctrs I10 Essential (primary) hypertension E78.5 Hyperlipidemia, unspecified I44.7 Left bundle-branch block, unspecified Office Visit 01/01/2016 Cardiology Ale Becker I49.3 Ventricular 8:00a Office JOSE Isaac, premature [place]ULSER depolarization I25.10 Athscl heart disease of [place] coronary artery w/o ang pctrs I10 Essential (primary) hypertension E78.5 Hyperlipidemia, unspecified I44.7 Left bundle-branch block, unspecified Office Visit 05/10/2015 Cardiology Willy, 414.01 Coronary 9:30a Office Mickey Gambino M.D., Atherosclerosis FACC [place] 401.1 Hypertension Benign 272.4 Hyperlipidemia Other Unspec Office Visit 11/09/2014 Cardiology Willy 414.01 Coronary 10:30a Office Mickey Gambino M.D., Atherosclerosis FACC [place] 401.1 Hypertension Benign 272.4 Hyperlipidemia Other Unspec 426.3 Left Bundle Branch Block Other Office Visit 03/27/2014 Cardiology Selene Soares 414.01 Coronary 8:30a Office A., ANP Atherosclerosis [place] 401.1 Hypertension Benign 272.4 Hyperlipidemia Other Unspec 457.1 Lymphedema Other Office Visit 12/06/2013 1:45p Surgical Office Herrera Llanes 786.51 Pain Precordial Office Visit 11/22/2013 2:30p Surgical Office Herrera Llanes 786.59 Pain Chest Other Office Visit 10/13/2013 11:00a Surgical Office Marlon 786.59 Pain Chest Other MD Paddy Office Visit 09/23/2013 2:30p Cardiology Office Lalo Carlos, 786.59 Pain Chest Other , PhD 414.01 Coronary Atherosclerosis [place] 401.1 Hypertension Benign 272.4 Hyperlipidemia Other Unspec Office Visit 12/13/2012 2:00p Cardiology Office Selene Soares 786.59 Pain Chest ANP Other 414.01 Coronary Atherosclerosis [place] 401.1 Hypertension Benign 272.4 Hyperlipidemia Other Unspec 794.30 Cardiovascular Function Study Unspec Abnormal Office Visit 11/11/2012 Cardiology Selene Soares 414.01 Coronary 3:30p Office A., ANP Atherosclerosis [place] 401.1 Hypertension Benign 272.4 Hyperlipidemia Other Unspec 785.1 Palpitations Office Visit 05/07/2012 Cardiology Lalo Carlos 414.01 Coronary 2:00p Office MD Deloris, PhD Atherosclerosis [place] 401.1 Hypertension Benign 272.4 Hyperlipidemia Other Unspec Office Visit 03/12/2012 1:00p Cardiology Office Lalo Carlos, 786.59 Pain Chest MD, PhD Other 414.01 Coronary Atherosclerosis [place] 401.1 Hypertension Benign 272.4 Hyperlipidemia Other Unspec Office Visit 09/25/2011 1:00p Cardiology Office Lalo Carlos, 785.1 Palpitations MD, PhD 786.59 Pain Chest Other 272.4 Hyperlipidemia Other Unspec 401.1 Hypertension Benign 414.01 Coronary Atherosclerosis [place] Office Visit 08/21/2011 2:00p Cardiology Office Lalo Carlos, 786.59 Pain Chest MD, PhD Other 272.4 Hyperlipidemia Other Unspec 401.1 Hypertension Benign 414.01 Coronary Atherosclerosis [place] 785.1 Palpitations Office Visit 02/17/2011 2:40p Cardiology Office Lalo Carlos, 786.59 Pain Chest MD, PhD Other 272.4 Hyperlipidemia Other Unspec 401.1 Hypertension Benign 414.01 Coronary Atherosclerosis [place] Office Visit 08/23/2010 8:40a Cardiology Office Lalo Carlos, 786.59 Pain Chest MD, PhD Other 272.4 Hyperlipidemia Other Unspec 401.1 Hypertension Benign 414.01 Coronary Atherosclerosis [place] Office Visit 07/23/2010 Cardiology Lalo Carlos 414.01 Coronary 8:30a Office MD Deloris, PhD Atherosclerosis [place] 786.2 Cough 272.4 Hyperlipidemia Other Unspec 401.1 Hypertension Benign Office Visit 06/28/2010 2:20p Cardiology Office Lalo Carlos, 786.59 Pain Chest , PhD Other 794.30 Cardiovascular Function Study Unspec Abnormal Office Visit 06/14/2010 1:00p Cardiology Office Lalo Carlos, 786.59 Pain Chest MD, PhD Other 785.1 Palpitations Plan of Treatment Future Appointment(s):11/18/2019 8:20 am - Davidenko, Mickey M., M.D., FACC at Cardiology [id number]/12/2019 - Mickey Aguilera M.D., FACCI25.10 Atherosclerotic heart disease of [place] coronary artery without angina pectorisComments:He has been feeling better since his 2 LAWSON. He finished rehab. He is very active and totally asymptomatic. No changes today.I10 Essential ( primary) hypertensionComments:Controlled No changes.I44.7 Left bundle-branch block, unspecifiedComments:His EF is [id number] Hyperlipidemia, unspecifiedComments:On statin.R55 Syncope and collapseComments:No recurrence. The loop has not shown any arrhythmia as yet
--- OUTSIDE RECORDS SUMMARY | 2019-05-24 23:32 | XMS REPORT | Continuity of Care Document ---
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 Payers Date Identification Numbers Payment Provider Subscriber Effective: 2012 Policy Number: [id number] Medicare Part B Rick Gunter PayID: [id number] [address] [place] [address] Effective: 2011 Policy Number: [id number] [facility] [employer] Rick Gunter PayID: [id number] [address] [address] [place] [address] Problems Active Problems Provider Date Coronary arteriosclerosis Jason Wilkins DO Onset: 08/11/2013 Benign localized hyperplasia of prostate Jason Wilkins DO Onset: 08/11/2013 Obstructive sleep apnea syndrome Jason Wilkins DO Onset: 08/11/2013 Obesity Jason Wilkins DO Onset: 08/11/2013 Mixed hyperlipidemia Jason Wilkins DO Onset: 08/11/2013 Benign essential hypertension Jason Wilkins DO Onset: 08/11/2013 Essential hypertension Arun Marks MD Onset: 02/06/2007 Palpitations Arun Marks MD Onset: 02/06/2007 Pure hypercholesterolemia Onset: 11/16/2014 Family History Date Family Member(s) Observation Comments Children 3 Siblings 6 Social History Type Date Description Comments Sex Unknown Marital Status 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 Tobacco Use Start: Unknown Never Smoked Cigarettes Tobacco Use Start: Unknown Patient has never smoked Smoking Status Reviewed: 07/22/19 Patient has never smoked Allergies, Adverse Reactions, Alerts Active Allergies Reaction Severity Comments Date Narcotic 12/11/2014 Medications Active Medications SIG Qnty Indications Ordering Provider Date Sulfamethoxazole/Trime 1 by mouth 28tabs Jason Wilkins, 05/02/2019 thoprim DS twice a day 800-160mg Tablets Losartan 1 by mouth I10 Mickey Aguilera, 10/27/2018 Potassium/Hydrochlorot every day hiazide 100-25mg Tablets I25.10 Aspirin 81 Low Dose 1 by mouth every day I25.10 Unknown 10/27/2018 81mg Chewtabs Plavix 1 by mouth every day Mickey Aguilera, 10/27/2018 75mg Tablets Lidocaine Evan apply to the 120gm Jason Wilkins, 08/06/2017 5% Ointment affected l breast DO twice a day Ibuprofen 1 by mouth three 90tabs Jason Wilkins, 09/12/2014 800mg Tablets times a day with DO food Diltiazem CD 1 by mouth every day Unknown 240mg Caps ER DR Aguilera 24HR Multivitamin Adult 1 by mouth every day Unknown Tablets Atorvastatin Calcium 1 by mouth every day 90tabs E78.2 Jason Wilkins, 20mg DO Tablets I25.10 [place] 50 1000mg 1 po qd E78.2 Unknown Capsules Tamsulosin HCL 0.4mg 1 po qd 90caps Unknown Capsules History Medications Famciclovir 1 by mouth q8 21tabs R21 Angélica Edmond, 01/10/2017 - 500mg hours for 7 days 02/04/2017 Tablets for shingles Losartan Potassium 1 by mouth every 90tabs I10 Jason Wilkins, 02/01/2013 - day DO 10/26/2018 100mg Tablets I25.10 Simvastatin take 1 tablet 90tabs E78.2 Jason Wilkins, 12/01/2011 - 40mg by mouth every DO 07/18/2016 Tablets day I25.10 Metoprolol Succinate take 1 tablet by 180tabs I10 Jason Wilkins DO 09/17 - ER mouth twice 10/23/2018 100mg Tablets ER daily 24HR I25.10 Aspirin 1 po qd I25.10 Unknown - 10/27/2018 325mg Tablets Coq-10 1 by mouth every day Unknown - 04/28/2018 Capsules Diltiazem CD 1 by mouth every day Unknown - 05/02/[address] Aguilera 24HR Prostate Health 2 PO qd Unknown - 04/28/2018 Capsules Vitamin B12 1 by mouth every day Unknown - 05/02/2019 1000mcg Tablets ER Immunizations CPT Code Status Date Vaccine Lot # [id number] Given 04/28/2017 Tdap (Adacel) Ages 7 And Above Only [id number] Refused 10/29/2018 Shingrix (Shingles) Zoster Vaccine HZV, Recombinant , Subunit, Adj [id number] Refused 08/27/2018 Fluzone Highdose Age 65 And Over Preservative & Antibiotic Free [id number] Refused 04/28/2018 Zoster (Zostavax) [id number] Refused 04/28/2018 Pneumococcal 23 Immunization Adult Or Immunosuppressed Patient [id number] Refused 04/28/2018 Prevnar 13 Pneumococal Conjugate Vaccine Vital Signs Date Vital Result Comment 05/02/2019 10:54am Weight 250.00 lb Heart Rate 76 /min BP Systolic 138 mmHg BP Diastolic 82 mmHg Respiratory Rate 18 /min Height 67.5 inches 5'7.50" BMI (Body Mass Index) 38.6 kg/m2 10/29/2018 8:55am Weight 261.00 lb Heart Rate 90 /min BP Systolic 148 mmHg BP Diastolic 88 mmHg Respiratory Rate 20 /min Height 67.5 inches 5'7.50" 04/28/18 KEYSHA FRITZ BMI (Body Mass Index) 40.3 kg/m2 04/28/2018 11:16am Weight 264.00 lb Heart Rate 80 /min BP Systolic 136 mmHg BP Diastolic 76 mmHg Respiratory Rate 18 /min Height 67.5 inches 5'7.50" 04/28/18 KEYSHA FRITZ BMI (Body Mass Index) 40.7 kg/m2 08/06/2017 1:01pm Weight 257.00 lb Heart Rate 60 /min BP Systolic 172 mmHg BP Diastolic 92 mmHg Respiratory Rate 18 /min Height 68 inches 5'8" (01/2017) BMI (Body Mass Index) 39.1 kg/m2 04/28/2017 3:38pm Weight 256.00 lb Heart Rate 78 /min BP Systolic 130 mmHg BP Diastolic 70 mmHg Respiratory Rate 16 /min Height 68 inches 5'8" (01/2017) BMI (Body Mass Index) 38.9 kg/m2 02/04/2017 9:17am Weight 266.00 lb Heart Rate 62 /min BP Systolic 144 mmHg BP Diastolic 84 mmHg Respiratory Rate 18 /min Height 68 inches 5'8" (01/2017) BMI (Body Mass Index) 40.4 kg/m2 01/10/2017 10:19am Weight 266.00 lb Heart Rate 60 /min BP Systolic 158 mmHg BP Diastolic 86 mmHg Respiratory Rate 18 /min Height 68 inches 5'8" BMI (Body Mass Index) 40.4 kg/m2 07/18/2016 8:45am Weight 266.00 lb Heart Rate 60 /min BP Systolic 158 mmHg BP Diastolic 80 mmHg Respiratory Rate 19 /min Height 68 inches 5'8" BMI (Body Mass Index) 40.4 kg/m2 01/03/2016 8:05am Weight 262.00 lb Heart Rate 64 /min BP Systolic 156 mmHg BP Diastolic 80 mmHg Respiratory Rate 18 /min Height 68 inches 5'8" BMI (Body Mass Index) 39.8 kg/m2 07/04/2015 8:31am Weight 257.00 lb Heart Rate 66 /min BP Systolic 152 mmHg BP Diastolic 80 mmHg Respiratory Rate 18 /min Height 68 inches 5'8" BMI (Body Mass Index) 39.1 kg/m2 12/13/2014 8:01am Weight 260.00 lb Heart Rate 68 /min BP Systolic 142 mmHg BP Diastolic 88 mmHg BP Systolic Recheck 144 mmHg BP Diastolic Recheck 84 mmHg Respiratory Rate 18 /min Height 68 inches 5'8" BMI (Body Mass Index) 39.5 kg/m2 09/12/2014 9:38am Weight 264.00 lb Heart Rate 64 /min BP Systolic 148 mmHg BP Diastolic 80 mmHg Respiratory Rate 18 /min Height 68 inches 5'8" 06/09/2014 3:22pm Weight 258.00 lb Heart Rate 76 /min BP Systolic 142 mmHg BP Diastolic 86 mmHg Respiratory Rate 18 /min Height 68 inches 5'8" 02/02/2014 11:37am Body Temperature 97.8 F Weight 262.00 lb Heart Rate 70 /min BP Systolic 140 mmHg BP Diastolic 80 mmHg Respiratory Rate 18 /min Height 68 inches 5'8" 11/11/2013 8:02am BP Systolic 150 mmHg BP Diastolic 90 mmHg 11/11/2013 8:02am Weight 257.00 lb Heart Rate 74 /min BP Systolic 150 mmHg BP Diastolic 84 mmHg Respiratory Rate 18 /min 08/11/2013 3:41pm BP Systolic 156 mmHg BP Diastolic 96 mmHg 08/11/2013 3:41pm Weight 258.00 lb Heart Rate 64 /min BP Systolic 160 mmHg BP Diastolic 88 mmHg Respiratory Rate 19 /min Height 69 inches 5'9" 03/15/2013 3:06pm Weight 251.00 lb Heart Rate 64 /min BP Systolic 134 mmHg BP Diastolic 70 mmHg Respiratory Rate 20 /min Height 69 inches 5'9" 02/01/2013 1:05pm Weight 254.00 lb Heart Rate 80 /min BP Systolic 150 mmHg BP Diastolic 80 mmHg Respiratory Rate 20 /min Height 69 inches 5'9" 09/01/2012 11:08am Weight 25.00 lb Heart Rate 66 /min BP Systolic 152 mmHg BP Diastolic 90 mmHg Respiratory Rate 20 /min Height 69 inches 5'9" 08/03/2012 1:06pm Weight 251.00 lb Heart Rate 72 /min BP Systolic 140 mmHg BP Diastolic 80 mmHg Respiratory Rate 20 /min Height 69 inches 5'9" 05/13/2012 11:06am Body Temperature 98.1 F Weight 251.44 lb Heart Rate 78 /min BP Systolic 148 mmHg BP Diastolic 84 mmHg Respiratory Rate 19 /min Height 69 inches 5'9" 03/18/2012 3:51pm Weight 250.00 lb BP Systolic 140 mmHg BP Diastolic 86 mmHg Respiratory Rate 20 /min 12/04/2011 4:06pm Weight 253.00 lb Up 15 LBS Heart Rate 80 /min BP Systolic 140 mmHg BP Diastolic 80 mmHg Respiratory Rate 18 /min 06/03/2011 3:37pm Weight 238.00 lb Down 12 LBS BP Systolic 140 mmHg BP Diastolic 86 mmHg Height 69 inches 5'9" 10/30/2010 8:56am Weight 250.00 lb Heart Rate 58 /min BP Systolic 152 mmHg ph BP Diastolic 92 mmHg ph 10/30/2010 9:01am Weight 250.00 lb Height 70 inches 5'10" 09/10/2010 10:56am Weight 240.00 lb Heart Rate 68 /min BP Systolic 134 mmHg BP Diastolic 84 mmHg 08/15/2010 9:56am Body Temperature 97.9 F Weight 240.00 lb Heart Rate 80 /min BP Systolic 140 mmHg BP Diastolic 80 mmHg O2 % BldC Oximetry 97 % 07/30/2010 10:04am Weight 239.00 lb Heart Rate 80 /min BP Systolic 156 mmHg BP Diastolic 80 mmHg 06/04/2010 1:00pm Weight 242.00 lb Heart Rate 60 /min Irregular BP Systolic 122 mmHg BP Diastolic 80 mmHg 02/04/2010 1:23pm Weight 246.00 lb Heart Rate 84 /min BP Systolic 140 mmHg BP Diastolic 80 mmHg 11/14/2009 11:03am BP Systolic 130 mmHg BP Diastolic 82 mmHg 11/14/2009 11:03am Body Temperature 97.8 F Weight 248.00 lb Heart Rate 76 /min BP Systolic 140 mmHg BP Diastolic 90 mmHg Respiratory Rate 18 /min O2 % BldC Oximetry 97 % 11/05/2009 8:59am Weight 248.00 lb Heart Rate 80 /min BP Systolic 132 mmHg BP Diastolic 80 mmHg 05/04/2009 10:37am Weight 244.00 lb BP Systolic 110 mmHg BP Diastolic 76 mmHg 04/06/2009 11:12am Weight 246.00 lb Heart Rate 72 /min BP Systolic 142 mmHg RIGHT BP Diastolic 78 mmHg RIGHT Respiratory Rate 15 /min 03/30/2009 10:02am BP Systolic 158 mmHg BP Diastolic 88 mmHg 03/30/2009 10:02am Body Temperature 98.1 F Weight 247.12 lb Heart Rate 60 /min BP Systolic 162 mmHg BP Diastolic 94 mmHg Respiratory Rate 16 /min 09/26/2008 2:20pm Weight 243.00 lb Up 5 LBS Heart Rate 80 /min BP Systolic 142 mmHg BP Diastolic 80 mmHg Height 70 inches 5'10" 09/26/2008 2:59pm BP Systolic 128 mmHg BP Diastolic 76 mmHg Height 70 inches 5'10" 07/29/2007 2:11pm Weight 238.00 lb Heart Rate 64 /min BP Systolic 150 mmHg BP Diastolic 86 mmHg Height 70 inches 5'10" 05/06/2007 3:24pm Weight 235.00 lb Heart Rate 78 /min BP Systolic 142 mmHg BP Diastolic 80 mmHg Height 70 inches 5'10" 02/05/2007 9:03am Weight 241.00 lb Heart Rate 62 /min BP Systolic 130 mmHg BP Diastolic 80 mmHg Height 70 inches 5'10" Results Test Date Facility Test Result H/L Range Note LDL Cholesterol 04/26/2019 [facility] Cholesterol 122 mg/ dL <200 1, 2 Profile (315)- - Triglycerides 54 mg/dL <150 3 HDL Cholesterol 42 mg/dL >40 4 LDL-Cholesterol 69 mg/dL < 100 5 Basic (BMP) 04/26/2019 [facility] Glucose 107 mg/dL High 74-106 (315)- - BUN 25 mg/dL High 7-18 Creatinine 0.8 mg/dL N 0.6-1.3 Glom Filtration Rate, Estimate >60 mL/min >60 If >60 mL/min >60 6 BUN/Creat 31.2 ratio Sodium 137 mmol/L N 136-145 Potassium 3.9 mmol/L N 3.5-5.1 Chloride 104 mmol/L N 98-107 Carbon Dioxide 26 mmol/L N 21-32 Anion Gap 7 mEq/L Low 8-16 Calcium 9.4 mg/dL N 8.5-10.1 CBC with Auto 04/26/2019 [facility] White Blood 5.1 K/uL N 3.4-10.5 Diff-fcmg (315)- - Count Red Blood Count 4.78 M/uL N 4.20-5.80 Hemoglobin 14.5 gm/dL N 12.8-17.0 Hematocrit 41.8 % N 38.0-48.0 Mean Cell Volume 87.4 fl N 80.0-96.0 Mean Corpuscular HGB 30.3 pg N 27.0-33.0 Mean Corpuscular HGB Conc 34.7 g/dL N 31.7-36.0 Platelet Count 214 K/uL N 155-360 Red Cell Distri Width SD 44.7 fl N 36-51 Red Cell Distri Width %CV 13.9 % N 11.6-15.8 Mean Platelet Volume 9.4 fl N 6.6-10.6 Neut% 50.1 % N 33.0-73.0 Lymph % 33.2 % N 20.0-42.0 Dooly % 12.5 % High 0.0-10.0 Eo% 3.8 % N 0.0-6.6 Bas% 0.2 % N 0.0-1.1 Immature Grans 0.2 % N 0.0-5.0 NRBC % 0.0 /100WBC < 10/ 100 WBC Neut# 2.54 K/uL N 1.8-7.0 Lymph # 1.68 K/uL N 1.0-4.0 Dooly # 0.63 K/uL N 0.0-0.8 Eos # 0.19 K/uL N 0.0-0.5 Baso # 0.01 K/uL N 0.0-0.1 Immature Grans Absolute 0.01 K/uL NRBC # 0.00 K/uL Laboratory test 04/26/2019 [facility] Thyroid Stim 1.83 uIU/mL N 0.30-4.20 finding (315)- - Hormone Liver Function 04/26/2019 [facility] Total Protein 7.4 g/ dL N 6.4-8.2 Tests (315)- - Albumin 3.9 g/dL N 3.4-5.0 Globulin 3.5 g/dL N 1.9-4.3 Alb/Glob 1.1 ratio Bilirubin,Total 0.3 mg/dL N 0.2-1.0 Bilirubin,Direct 0.1 mg/dL N 0.0-0.2 Bilirubin,Indirect 0.2 mg/dL N 0.0-0.9 Sgot/Ast 28 U/L N 15-37 SGPT/Alt 42 U/L N 12-78 Alkaline Phosphatase 57 U/L N 45-117 Hemoglobin A1c 04/26/2019 [facility] Glycohemoglobin (A1c ) 6.2 % N 4.2-6.3 7 (315)- - eAG 131 mg/dL Laboratory test 10/17/2018 N2N/CCD Import Hemoglobin A1c 6.4 % High 4.0 - 6.0 finding Laboratory test 10/14/2018 N2N/CCD Import Anion Gap 6 mmol/L Low 7 - 16 finding BUN/Creatinine Ratio 21.4 High 10.0 - 20.0 Ratio Calcium 8.6 mg/dL 8.4 - 10.2 Chloride 105 mmol/L 100 - 108 Co2 30 mmol/L 22 - 31 Creatinine 0.84 mg/dL 0.80 - 1.30 GFR MDRD Af Amer >60 >59 ml/min/1.73m2 GFR MDRD Non Af Amer >60 >59 ml/min/1.73m2 Glom Filt Rate, Est See Notes Glucose 90 mg/dL 70 - 99 Potassium 4.1 mmol/L 3.6 - 5.2 Sodium 141 mmol/L 136 - 145 Urea nitrogen 18 mg/dL 7 - 24 Laboratory test finding 10/14/2018 N2N/CCD Import Hematocrit 44.4 % 41.0 - 53.0 Hemoglobin 14.9 g/dL 13.5 - 18.0 MCH 29.4 pg 27.0 - 32.0 MCHC 33.4 g/dL 32.0 - 36.0 MCV 88.0 fL 80.0 - 95.0 MPV 8.5 fL 7.1 - 10.7 Platelets 177 10*3/uL 150 - 450 RBC 5.05 10*6/uL 4.60 - 6.10 RDW 14.2 % 10.5 - 14.5 WBC 7.8 10*3/uL 4.1 - 11.0 Basic (BMP) 05/12/2018 [facility] Sodium 143 mmol/L 135-146 8 Potassium 4.3 mmol/L 3.5-5.2 Chloride# 105 mmol/L 97-110 9 Carbon Dioxide 28 mmol/L 24-34 Glucose 116 mg/dL High 70-105 BUN 19 mg/dL 6-26 Creatinine 0.9 mg/dL 0.5-1.4 Calcium 9.4 mg/dL 8.5-10.2 Non Courtney Egfr >60 >60 10 Courtney Egfr >60 >60 11 Anion Gap 10 mmol/L 5-15 12 Hemoglobin A1c 05/12/2018 [facility] Hemoglobin A1c 6.3 % High 4.1-5.9 Estimated Average Glucose Calc 134 mg/dL 71-140 Lipid Treatment 05/12/2018 [facility] Cholesterol 148 mg/dL 50-199 Triglycerides 116 mg/dL 30-200 HDL 41 mg/dL 29-71 13 Chol/ HDL Ratio 3.6 ratio Low 4.0-6.7 VLDL 23 mg/dL 2-29 LDL (Calc) 84 mg/dL 20-99 14 Alt 35 U/L 3-42 Ast 22 U/L 8-42 Basic Metabolic Panel 03/07/2018 [facility] Glucose 98 mg /dL N 74-106 15 (315)- - BUN 17 mg/dL N 7-18 Creatinine 1.0 mg/dL N 0.6-1.3 Glom Filtration Rate, Estimate >60 mL/min >60 If >60 mL/min >60 16 BUN/Creat 17.0 ratio Sodium 140 mmol/L N 136-145 Potassium 4.0 mmol/L N 3.5-5.1 Chloride 105 mmol/L N 98-107 Carbon Dioxide 29 mmol/L N 21-32 Anion Gap 6 mEq/L Low 8-16 Calcium 9.0 mg/dL N 8.5-10.1 CBS W/Automated 03/07/2018 [facility] White Blood 13.3 K/ uL High 3.4-10.5 Diff (315)- - Count Red Blood Count 5.23 M/uL N 4.20-5.80 Hemoglobin 15.5 gm/dL N 12.8-17.0 Hematocrit 46.3 % N 38.0-48.0 Mean Cell Volume 88.5 fl N 80.0-96.0 Mean Corpuscular HGB 29.6 pg N 27.0-33.0 Mean Corpuscular HGB Conc 33.5 g/dL N 31.7-36.0 Platelet Count 166 K/uL N 155-360 Red Cell Distri Width SD 46.2 fl N 36-51 Red Cell Distri Width %CV 14.7 % N 11.6-15.8 Mean Platelet Volume 9.9 fL N 6.6-10.6 Neut% 75.1 % High 33.0-73.0 Lymph % 11.9 % Low 20.0-42.0 Dooly % 10.9 % High 0.0-10.0 Eo% 2.0 % N 0.0-6.6 Bas% 0.1 % N 0.0-1.1 Neut# 9.98 K/uL High 1.8-7.0 Lymph # 1.58 K/uL N 1.0-4.0 Dooly # 1.44 K/uL High 0.0-0.8 Eos # 0.26 K/uL N 0.0-0.5 Baso # 0.01 K/uL N 0.0-0.1 Slide Review 03/07/2018 [facility] Slide Review DIFF ORDERED (315)- - Differential-WBC 03/07/2018 [facility] Total Cells 100 # CELLS Confirm (315)- - Counted Band% 5 % N 0-8 Neutrophils% 63 % N 33-73 Lymph% 15 % Low 20-42 Atypical Lymph% 4 % N 0-7 Monocyte% 9 % N 0-10 Eosinophil% 4 % N 0-5 Platelet Estimate NORMAL RBC Morphology NORMAL CBC With Auto Diff 08/07/2017 [facility] WBC 6.3 K/uL 4.1-11.0 RBC 5.03 M/uL 4.60-6.10 Hemoglobin 14.8 gm/dL 13.5-18.0 Hematocrit 44.2 % 41.0-53.0 MCV 87.9 fL 80.0-97.0 MCH 29.5 pg 27.0-32.0 MCHC 33.6 g/dL 32.0-36.0 RDW 14.6 % High 11.5-14.5 PLT Count 177 K/ul 140-400 MPV 8.3 FL 7.1-10.7 Neutrophil 52.1 % 35.0-75.0 Lymphocyte 33.1 % 16.0-52.0 Monocyte 11.7 % High 2.0-10.0 Eosinophil 2.9 % 0.0-5.0 Basophil 0.2 % 0.0-4.0 Abs Neutrophils 3.3 K/uL 2.1-8.0 Abs Lymphocytes 2.1 K/uL 0.8-5.5 Abs Monocytes 0.7 K/uL 0.1-1.0 Abs Eosinophils 0.2 K/uL 0.0-0.5 Abs Basophils 0.0 K/uL 0.0-0.3 Basic (BMP) 08/07/2017 [facility] Sodium 142 mmol/L 135-146 17 Potassium 4.2 mmol/L 3.5-5.2 Chloride# 104 mmol/L 97-110 18 Carbon Dioxide 29 mmol/L 24-34 Glucose 110 mg/dL High 70-105 Creatinine 0.9 mg/dL 0.5-1.4 Calcium 9.2 mg/dL 8.5-10.2 Non Courtney Egfr >60 >60 19 Courtney Egfr >60 >60 20 Anion Gap 9 mmol/L 7-16 21 BUN 20 mg/dL 6-26 Laboratory test finding 08/07/2017 [facility] TSH 1.38 uIU/mL 0.35-4.94 Lipid Treatment 08/07/2017 [facility] Cholesterol 134 mg/dL 50-199 Triglycerides 91 mg/dL 30-200 HDL 41 mg/dL 29-71 22 Chol/ HDL Ratio 3.3 ratio Low 4.0-6.7 VLDL 18 mg/dL 2-29 LDL (Calc) 75 mg/dL 20-99 23 Alt 32 U/L 3-42 Ast 23 U/L 8-42 Hemoglobin A1c 08/07/2017 [facility] Hemoglobin A1c 6.4 % High 4.1-5.9 Estimated Average Glucose Calc 137 71-140 Comprehensive Metabolic (CMP) 02/04/2017 [facility] Sodium 141 mmol/L 135- 146 24, 25 Potassium 4.9 mmol/L 3.5-5.2 Chloride# 103 mmol/L 97-110 26 Carbon Dioxide 30 mmol/L 24-34 Glucose 107 mg/dL High 70-105 BUN 21 mg/dL 6-26 Creatinine 0.8 mg/dL 0.5-1.4 Calcium 9.9 mg/dL 8.5-10.2 Total Protein 6.8 g/dL 6.0-8.0 Albumin 4.5 g/dL 3.6-4.9 Globulin 2.3 g/dL 2.0-3.5 A/G Ratio 2.0 Ratio 1.0-2.2 Total Bilirubin 0.4 mg/dL 0.1-1.3 Alkaline Phosphatase 54 U/L 24-140 Alt 37 U/L 3-42 Ast 25 U/L 8-42 Courtney Egfr >60 >60 27 Non Courtney Egfr >60 >60 28 Anion Gap 13 mmol/L 7-16 29 Hemoglobin A1c 02/04/2017 [facility] Hemoglobin A1c 6.4 % High 4.1-5.9 Estimated Average Glucose Calc 137 71-140 CBC With Auto Diff 08/05/2016 [facility] WBC 6.5 K/uL 4.1-11.0 30 RBC 5.26 M/uL 4.60-6.10 Hemoglobin 15.4 gm/dL 13.5-18.0 Hematocrit 46.1 % 41.0-53.0 MCV 87.7 fL 80.0-97.0 MCH 29.2 pg 27.0-32.0 MCHC 33.3 g/dL 32.0-36.0 RDW 13.8 % 11.5-14.5 PLT Count 184 K/ul 140-400 Neutrophil 56.2 % 35.0-75.0 Lymphocyte 30.5 % 16.0-52.0 Monocyte 11.0 % High 2.0-10.0 Eosinophil 2.0 % 0.0-5.0 Basophil 0.3 % 0.0-4.0 Abs Neutrophils 3.6 K/uL 2.1-8.0 Abs Lymphocytes 2.0 K/uL 0.8-5.5 Abs Monocytes 0.7 K/uL 0.1-1.0 Abs Eosinophils 0.1 K/uL 0.0-0.5 Abs Basophils 0.0 K/uL 0.0-0.3 Basic (BMP) 08/05/2016 [facility] Sodium 137 mmol/L 134-142 Potassium 4.2 mmol/L 3.5-5.2 Chloride 105 mmol/L 97-109 Carbon Dioxide 28 mmol/L 24-34 Glucose 121 mg/dL High 70-105 BUN 17 mg/dL 6-26 Creatinine 0.9 mg/dL 0.5-1.4 Calcium 9.6 mg/dL 8.5-10.2 Anion Gap 8 mmol/L 6-14 Non Courtney Egfr >60 >60 31 Courtney Egfr >60 >60 32 Laboratory test finding 08/05/2016 [facility] TSH 1.94 uIU/mL 0.35-4.94 Lipid Treatment 08/05/2016 [facility] Cholesterol 137 mg/dL 50-199 Triglycerides 114 mg/dL 30-200 HDL 38 mg/dL 29-71 33 Chol/ HDL Ratio 3.6 ratio Low 4.0-6.7 VLDL 23 mg/dL 2-29 LDL (Calc) 76 mg/dL 20-99 34 Alt 41 U/L 3-42 Ast 24 U/L 8-42 Laboratory test finding 08/05/2016 [facility] CRP (C-Reactive) 0.11 mg/dL 0.00-0.75 Esr 1 mm/hr 0-15 Rheumatoid Factor <10.0 IU/mL 0.0-10.0 Lyme Disease By PCR - RL 08/05/2016 [facility] SERUM Lyme PCR Not Detected 35 Comprehensive Metabolic (CMP) 01/03/2016 [facility] Sodium 138 mmol/L 134- 142 36 Potassium 4.2 mmol/L 3.5-5.2 Chloride 103 mmol/L 97-109 Carbon Dioxide 31 mmol/L 24-34 Glucose 98 mg/dL 70-105 BUN 18 mg/dL 6-26 Creatinine 0.9 mg/dL 0.5-1.4 Calcium 9.8 mg/dL 8.5-10.2 Total Protein 6.8 g/dL 6.0-8.0 Albumin 4.3 g/dL 3.6-4.9 Globulin 2.5 g/dL 2.0-3.5 A/G Ratio 1.7 Ratio 1.0-2.2 Total Bilirubin 0.4 mg/dL 0.1-1.3 Alkaline Phosphatase 54 U/L 24-140 Alt 43 U/L High 3-42 Ast 27 U/L 8-42 Anion Gap 8 mmol/L 6-14 Courtney Egfr >60 >60 37 Non Courtney Egfr >60 >60 38 CBC With Auto Diff 07/11/2015 [facility] WBC 6.6 K/uL 4.1-11.0 39 RBC 5.17 M/uL 4.60-6.10 Hemoglobin 15.0 gm/dL 13.5-18.0 Hematocrit 46.0 % 41.0-53.0 MCV 89.0 fL 80.0-97.0 MCH 29.0 pg 27.0-32.0 MCHC 32.5 g/dL 32.0-36.0 RDW 14.4 % 11.5-14.5 PLT Count 175 K/ul 140-400 Neutrophil 52.6 % 35.0-75.0 Lymphocyte 34.8 % 16.0-52.0 Monocyte 10.1 % High 2.0-10.0 Eosinophil 2.1 % 0.0-5.0 Basophil 0.4 % 0.0-4.0 Abs Neutrophils 3.5 K/uL 2.1-8.0 Abs Lymphocytes 2.3 K/uL 0.8-5.5 Abmon 0.7 K/uL 0.1-1.0 Abs Eosinophils 0.1 K/uL 0.0-0.5 Abs Basophils 0.0 K/uL 0.0-0.3 Basic (BMP) 07/11/2015 [facility] Sodium 142 mmol/L 134-142 Potassium 4.6 mmol/L 3.5-5.2 Chloride 105 mmol/L 97-109 Carbon Dioxide 30 mmol/L 24-34 Glucose 106 mg/dL High 70-105 BUN 20 mg/dL 6-26 Creatinine 1.0 mg/dL 0.5-1.4 Calcium 9.0 mg/dL 8.5-10.2 Anion Gap 12 mmol/L 6-14 Non Courtney Egfr >60 >60 40 Courtney Egfr >60 >60 41 Lipid Treatment 07/11/2015 [facility] Cholesterol 137 mg/dL 50-199 Triglycerides 99 mg/dL 30-200 HDL 37 mg/dL 29-71 42 Chol/ HDL Ratio 3.7 ratio Low 4.0-6.7 VLDL 20 mg/dL 2-29 LDL (Calc) 80 mg/dL 20-99 43 Alt 33 U/L 3-42 Ast 21 U/L 8-42 Laboratory test finding 07/11/2015 [facility] TSH 1.04 uIU/mL 0.35-4.94 Comprehensive Metabolic (CMP) 12/13/2014 [facility] Sodium 141 mmol/L 134- 142 Potassium 4.6 mmol/L 3.5-5.2 Chloride 103 mmol/L 97-109 Carbon Dioxide 31 mmol/L 24-34 Glucose 96 mg/dL 70-105 BUN 25 mg/dL 6-26 Creatinine 0.9 mg/dL 0.5-1.4 Calcium 9.7 mg/dL 8.5-10.2 Total Protein 6.6 g/dL 6.0-8.0 Albumin 4.5 g/dL 3.6-4.9 Globulin 2.1 g/dL 2.0-3.5 A/G Ratio 2.1 Ratio 1.0-2.2 Total Bilirubin 0.4 mg/dL 0.1-1.3 Alkaline Phosphatase 57 U/L 24-140 Alt 31 U/L 3-42 Ast 24 U/L 8-42 Anion Gap 12 mmol/L 6-14 Courtney Egfr >60 >60 44 Non Courtney Egfr >60 >60 45 Laboratory test finding 05/04/2014 N2N/CCD Import % Baso. 1.3 % 0.0-2.0 % Eos. 3.6 % 0.0-4.0 % Lymph 38 % 20-44 % Dooly 10.8 % High 2.0-10.0 % Patrizia 47 % Low 50-70 Absolute Baso. 0.1 K/ul 0.0-0.3 Absolute Eos. 0.2 K/ul 0.0-0.5 Absolute Lymph. 2.4 K/ul 0.8-4.8 Absolute Dooly. 0.7 K/ul 0.1-1.0 Absolute Patrizia. 2.94 K/ul 2.05-7.63 Alt 36.0 U/L 21.0-72.0 Ast 28.0 U/L 17.0-59.0 BUN 21.0 mg/dL 9.0-21.0 BUN/Creat Ratio 26.3 ratio High 12.0-20.0 Calcium 9.1 mg/dL 8.7-10.5 Chloride 108.0 mmol/L High 98.0-107.0 Co2 26.0 mmol/L 22.0-30.0 Creatinine-Serum 0.8 mg/dL 0.8-1.5 Glucose 108.0 mg/dL 75.0-110.0 HCT 43.8 % 37.0-51.0 HGB 15.1 Gm/dl 12.0-16.0 MCH 29.6 pg 26.0-32.0 MCHC 34.4 g/dL 31.0-36.0 MCV 86.0 Fl 80.0-97.0 MPV 6.9 fL 6.0-10.0 PLT 202 K/ul 140-440 Potasium 4.2 mmol/L 3.6-5.0 RBC 5.1 M/ul 4.2-6.3 RDW 12.7 % 11.5-14.5 Sodium 144.0 mmil/L 137.0-145.0 TSH 1.05 uIU/ml 0.50-6.00 WBC 6.3 K/ul 4.1-10.9 eGFR 102.5 Lipid Panel 05/04/2014 N2N/CCD Import Chol/HDL Ratio 4.0 ratio Cholesterol 143.0 mg/dL 50.0-199.0 HDL 36.0 mg/dL 29.0-67.0 LDL, Calculated 86.4 mg/dL 20.0-129.0 Triglycerides 103.0 mg/dL 30.0-249.0 vLDL 20.6 ng/dL Laboratory test finding 08/11/2013 N2N/CCD Import Alb/Glob 1.4 ratio Albumin 4.2 g/dL 3.5-5.0 Alkaline Phosphatase 68 U/L 50-136 Anion Gap 13 mEq/L 8-16 BUN 19 mg/dL 5-23 BUN/Creat 23.7 ratio Bilirubin,Total 0.3 mg/dL 0.2-1.2 Calcium 9.4 mg/dL 8.5-10.1 Carbon Dioxide 27 mEq/L 18-29 Chloride 105 mmol/L 98-107 Creatinine 0.8 mg/dL 0.5-1.4 Globulin 3.0 g/dL 1.9-4.3 Glom Filtration Rate, Estimate >60 mL/min >60 Glucose 90 mg/dL 76-115 If >60 mL/min >60 46 Potassium 4.3 mmol/L 3.5-5.1 SGPT/Alt 47 U/L 30-65 Sgot/Ast 23 U/L 16-40 Sodium 141 mmol/L 136-145 Total Protein 7.2 g/dL 6.3-8.0 Laboratory test 02/21/2013 N2N/CCD Import Luteinizing 1.9 mIU/mL Low 2.0- 12.0 47 finding Hormone Prolactin 10.3 ng/mL 3.28-19.68 48 Testosterone,Serum 261 ng/dL Low 348-1197 49 Laboratory test finding 02/01/2013 N2N/CCD Import Alt 33.0 U/L 21.0- 72.0 Ast 26.0 U/L 17.0-59.0 BUN 18.0 mg/dL 9.0-21.0 BUN/Creat Ratio 20.0 ratio 12.0-20.0 CK 229 U/L High 26-190 CK-MB (Mass) 4.1 ng/mL 0.5-8.2 Calcium 9.4 mg/dL 8.7-10.5 Chloride 103.0 mmol/L 98.0-107.0 Co2 26.0 mmol/L 22.0-30.0 Creatinine-Serum 0.9 mg/dL 0.8-1.5 Glucose 101.0 mg/dL 75.0-110.0 Potasium 3.8 mmol/L 3.6-5.0 Relative % Index 1.8 % <5 50 Sodium 142.0 mmil/L 137.0-145.0 Testosterone,Serum 153 ng/dL Low 348-1197 51 eGFR 89.7 Lipid Panel 02/01/2013 N2N/CCD Import Chol/HDL Ratio 4.1 ratio Cholesterol 158.0 mg/dL 50.0-199.0 HDL 39.0 mg/dL 29.0-67.0 LDL, Calculated 74.4 mg/dL 20.0-129.0 Triglycerides 223.0 mg/dL 30.0-249.0 vLDL 44.6 ng/dL Laboratory test 02/26/2012 N2N/CCD Import Polyp Colon See Note 52 finding And/Or Rectum Laboratory test 06/03/2011 N2N/CCD Import SGPT/Alt 47 U/L 30-65 53 finding Sgot/Ast 23 U/L 16-40 54 LDL Cholesterol Profile 06/03/2011 N2N/CCD Import Cholesterol 146 mg/dL 120-200 HDL Cholesterol 40 mg/dL 32-96 LDL-Cholesterol 72 mg/dL 62-185 Triglycerides 168 mg/dL 0-210 Lipid Panel 10/30/2010 N2N/CCD Import Chol/HDL Ratio 4.3 55, 56 Cholesterol 190 mg/dL 50-199 HDL Cholesterol 44 mg/dL 29-67 LDL 110 mg/dL 20-129 Triglycerides 180 mg/dL 30-249 VLDL Cholesterol 36 mg/dL Laboratory test finding 10/30/2010 N2N/CCD Import Alt 44 U/L 21-72 Anion Gap 15 mmol/L 10-20 Ast 27 U/L 17-59 BUN 22 mg/dL High 9-21 BUN/CR Ratio 26.1 Ratio High 12-20 Calcium 9.6 mg/dL 8.7-10.5 Carbon Dioxide 31 mmol/L High 22-30 Chloride 101 mmol/L 98-107 Creatinine, Serum 0.8 mg/dL 0.8-1.5 Glucose 92 mg/dL 75-110 Potassium 4.3 mmol/L 3.6-5.0 Sodium 142 mmol/L 137-145 Laboratory test finding 08/06/2010 N2N/CCD Import CK 52 U/L 26-190 57 Troponin-I 0.1 ng/mL 0.0-0.6 58 Laboratory test 08/06/2010 N2N/CCD Import Sedimentation Rate 35 mm/hr High 0-20 59 finding CK 52 U/L 26-190 60 Troponin-I 0.1 ng/mL 0.0-0.6 61 Laboratory test 08/05/2010 N2N/CCD Import Act Partial 31.3 s 23.4-37.4 62 finding Thrombo Time CK 49 U/L 26-190 63 Inr 1.3 High 0.8-1.2 64 Magnesium 1.6 mg/dL Low 1.7-2.3 65 Protime 16.6 s High 11.7-15.1 Troponin-I 0.0 ng/mL 0.0-0.6 66 Laboratory test finding 08/05/2010 N2N/CCD Import Alb/Glob 1.0 Albumin 3.8 g/dL 3.5-5.0 Alkaline Phosphatase 93 U/L 50-136 Anion Gap 10 mEq/L 8-16 BUN 13 mg/dL 5-23 BUN/Creat 16.2 Band% 5 % 0-8 Bilirubin,Total 0.5 mg/dL 0.2-1.2 CBS W/Automated Diff See Note 67 CK 68 U/L 26-190 68 Calcium 9.2 mg/dL 8.5-10.1 Carbon Dioxide 31 mEq/L 21-32 Chloride 100 mEq/L 98-107 Creatinine 0.8 mg/dL 0.5-1.4 Eosinophil% 1 % 0-5 Globulin 4.0 gm/dL 1.9-4.3 Glom Filtration Rate, Estimate >60 mL/min >60 Glucose 88 mg/dL 76-115 Hematocrit 40.8 % 38.0-48.0 Hemoglobin 13.6 gm/dL 12.8-17.0 If >60 mL/min >60 69 Lymph% 17 % 17-56 Mean Cell Volume 88.3 fl 80.0-96.0 Mean Corpuscular HGB 29.4 pg 27.0-33.0 Mean Corpuscular HGB Conc 33.3 g/dL 31.7-36.0 Mean Platelet Volume 9.5 fL 6.6-10.6 Monocyte% 13 % High 0-10 Neutrophils% 64 % 33-73 Platelet Count 247 K/uL 150-400 Platelet Estimate Normal Potassium 3.8 mEq/L 3.5-5.1 RBC Morphology Normal Red Blood Count 4.62 M/uL 4.20-5.80 Red Cell Distri Width %CV 14.0 % 11.6-15.8 SGPT/Alt 37 U/L 30-65 Sgot/Ast 14 U/L Low 16-40 Sodium 137 mEq/L 136-145 Total Cells Counted 100 #CELLS Total Protein 7.8 g/dL 6.3-8.0 Troponin-I 0.0 ng/mL 0.0-0.6 70 White Blood Count 9.5 K/uL 3.4-10.5 Laboratory test 06/04/2010 N2N/CCD Import Absolute 0.040 K/ul 0.0-0.3 71 finding Basophils Absolute Eosinophils 0.148 K/ul 0.0-0.5 Absolute Lymphocytes 1.80 K/ul 0.8-4.8 Absolute Monocytes 0.576 K/ul 0.1-1.0 Absolute Neutrophils 4.51 K/ul 2.05-7.63 Anion Gap 11 mmol/L 10-20 BUN 16 mg/dL 9-21 BUN/CR Ratio 18.8 Ratio 12-20 Basophil 0.6 % 0-2 Calcium 9.8 mg/dL 8.7-10.5 Carbon Dioxide 30 mmol/L 22-30 Chloride 102 mmol/L 98-107 Creatinine, Serum 0.9 mg/dL 0.8-1.5 Eosinophil 2.1 % 0-4 Glucose 123 mg/dL High 75-110 Hematocrit 42.9 % 37.0-51.0 Hemoglobin 14.6 GM/dl 12.0-16.0 Lymphocytes 25.4 % 20-44 MCH 28.3 pg 26.0-32.0 MCHC 34.1 g/dL 31.0-36.0 MCV 83 FL 80-97 Magnesium 1.7 mg/dL 1.7-2.3 72 Monocytes 8.1 % 2-10.0 Neutrophils 63.8 % 50-70 Platelet Count 219 K/ul 140-440 Potassium 3.9 mmol/L 3.6-5.0 RBC 5.16 M/ul 4.2-6.3 RDW 12.3 % 11.5-14.5 Sodium 140 mmol/L 137-145 WBC 7.1 K/ul 4.1-10.9 Laboratory test finding 12/12/2009 N2N/CCD Import Alt 33 U/L 21-72 Anion Gap 15 mmol/L 10-20 Ast 35 U/L 17-59 BUN 22 mg/dL High 9-21 BUN/CR Ratio 25.2 Ratio High 12-20 Calcium 9.0 mg/dL 8.7-10.5 Carbon Dioxide 29 mmol/L 22-30 Chloride 101 mmol/L 98-107 Creatinine, Serum 0.9 mg/dL 0.8-1.5 Glucose 95 mg/dL 75-110 Potassium 4.4 mmol/L 3.6-5.0 Sodium 140 mmol/L 137-145 Lipid Panel 12/12/2009 N2N/CCD Import Chol/HDL Ratio 4.8 73 Cholesterol 176 mg/dL 50-199 HDL Cholesterol 36 mg/dL 29-67 LDL 111 mg/dL 20-129 Triglycerides 147 mg/dL 30-249 VLDL Cholesterol 29 mg/dL Laboratory test finding 05/21/2009 N2N/CCD Import Alb/Glob 1.3 74 Albumin 4.1 g/dL 3.5-5.0 Alkaline Phosphatase 74 U/L 50-136 Anion Gap 11 mEq/L 8-16 BUN 23 mg/dL 5-23 BUN/Creat 19.1 Bas% 0.0 % Low 0.1-1.0 Baso # 0.0 K/uL Low 0.1-0.2 Bilirubin,Direct 0.1 mg/dL 0.1-0.4 Bilirubin,Indirect 0.2 mg/dL 0.0-0.9 Bilirubin,Total 0.3 mg/dL 0.2-1.2 Calcium 8.9 mg/dL 8.5-10.1 Carbon Dioxide 29 mEq/L 21-32 Chloride 102 mEq/L 98-107 Creatinine 1.2 mg/dL 0.5-1.4 Eo% 0.7 % 0.0-5.0 Eos # 0.1 K/uL 0.0-0.5 Globulin 3.1 gm/dL 1.9-4.3 Glom Filtration Rate, Estimate >60 mL/min >60 Glucose 134 mg/dL High 76-115 Hematocrit 44.8 % 38.0-48.0 Hemoglobin 14.9 gm/dL 12.8-17.0 If >60 mL/min >60 75 Lipase 353 U/L High 114-286 Lymph # 1.6 K/uL 1.2-4.0 Lymph % 17.2 % 17.0-56.0 Mean Cell Volume 86.0 fl 80.0-96.0 Mean Corpuscular HGB 28.6 pg 27.0-33.0 Mean Corpuscular HGB Conc 33.3 g/dL 31.7-36.0 Mean Platelet Volume 10.1 fL 6.6-10.6 [place] # 0.8 K/uL High 0.0-0.6 [place] % 8.5 % 0.0-10.0 Neut# 6.9 K/uL 1.8-7.0 Neut% 73.6 % High 33.0-73.0 Platelet Count 203 K/uL 150-400 Potassium 4.1 mEq/L 3.5-5.1 Red Blood Count 5.21 M/uL 4.20-5.80 Red Cell Distri Width %CV 14.0 % 11.6-15.8 Red Cell Distri Width SD 44 fl 36-51 SGPT/Alt 52 U/L 30-65 Sgot/Ast 23 U/L 16-40 Sodium 138 mEq/L 136-145 Total Protein 7.2 g/dL 6.3-8.0 Urine Amorph Sediment Small Negative Urine Bilirubin - Dipstick Negative Negative Urine Blood Large High Negative Urine Clarity Clear Clear Urine Color Yellow Yellow Urine Epithelial Cells Few None Seen Urine Glucose - Dipstick Negative mg/dL Negative Urine Ketone Negative mg/dL Negative Urine Leuk Esterase Negative Negative Urine Mucus Moderate None Seen Urine Nitrite - Dipstick Negative Negative Urine PH 6.0 Low 6.5-7.5 Urine Protein - Dipstick Trace mg/dL Negative Urine RBC 8-10 rbc/hpf High 0-7 Urine Screen DNR 76 Urine Specific [place] >=1.030 1.010-1.030 Urine Urobilinogen - Dipstick 0.2 E.U./dL 0.2-1.0 Urine WBC 0-2 wbc/hpf 0-7 White Blood Count 9.4 K/uL 3.4-10.5 Laboratory test finding 05/17/2009 N2N/CCD Import Anion Gap 11 mmol/L 10 -20 77 BUN 22 mg/dL High 9-21 BUN/CR Ratio 26.6 Ratio High 12-20 Calcium 8.9 mg/dL 8.7-10.5 Carbon Dioxide 28 mmol/L 22-30 Chloride 105 mmol/L 98-107 Creatinine, Serum 0.8 mg/dL 0.8-1.5 Glucose 99 mg/dL 75-110 Potassium 4.3 mmol/L 3.6-5.0 Sodium 139 mmol/L 137-145 Lipid Panel 05/17/2009 N2N/CCD Import Chol/HDL Ratio 4.5 78 Cholesterol 168 mg/dL 50-199 HDL Cholesterol 37 mg/dL 29-67 LDL 108 mg/dL 20-129 Triglycerides 117 mg/dL 30-249 VLDL Cholesterol 23 mg/dL Laboratory test 09/26/2008 N2N/CCD Import Absolute Basophils 0.03 K/ul 0.0-0.3 finding Absolute Eosinophils 0.12 K/ul 0.0-0.5 Absolute Lymphocytes 0.74 K/ul Low 0.8-4.8 Absolute Monocytes 0.56 K/ul 0.1-1.0 Absolute Neutrophils 5.42 K/ul 2.05-7.63 Alt 27 U/L 21-72 Anion Gap 13 mmol/L 10-20 Ast 27 U/L 17-59 BUN 21 mg/dL 9-21 BUN/CR Ratio 27.6 Ratio High 12-20 Basophil 0.5 % 0-2 Calcium 9.0 mg/dL 8.7-10.5 Carbon Dioxide 27 mmol/L 22-30 Chloride 102 mmol/L 98-107 Creatinine, Serum 0.8 mg/dL 0.8-1.5 Eosinophil 1.8 % 0-4 Glucose 119 mg/dL High 75-110 Hematocrit 43.2 % 37.0-51.0 Hemoglobin 14.6 GM/dl 12.0-16.0 Lymphocytes 10.8 % Low 20-44 MCH 28.6 pg 26.0-32.0 MCHC 33.8 g/dL 31.0-36.0 MCV 85 FL 80-97 Monocytes 8.2 % 2-10.0 Neutrophils 78.7 % High 50-70 PSA 1.42 ng/mL 0.00-4.00 Platelet Count 161 K/ul 140-440 Potassium 3.9 mmol/L 3.6-5.0 RBC 5.11 M/ul 4.2-6.3 RDW 12.6 % 11.5-14.5 Sodium 139 mmol/L 137-145 WBC 6.9 K/ul 4.1-10.9 Lipid Panel 09/26/2008 N2N/CCD Import Chol/HDL Ratio 5.8 79 Cholesterol 224 mg/dL High 50-199 HDL Cholesterol 38 mg/dL 29-67 LDL 136 mg/dL High 20-129 Triglycerides 248 mg/dL 30-249 VLDL Cholesterol 50 mg/dL Laboratory test finding 08/12/2007 N2N/CCD Import Anion Gap 14 mmol/L 10 -20 80 BUN 19 mg/dL 9-21 BUN/CR Ratio 22.1 Ratio High 12-20 Calcium 9.5 mg/dL 8.7-10.5 Carbon Dioxide 28 mmol/L 22-30 Chloride 100 mmol/L 98-107 Creatinine, Serum 0.9 mg/dL 0.8-1.5 Glucose 91 mg/dL 75-110 Potassium 4.4 mmol/L 3.6-5.0 Sodium 138 mmol/L 137-145 1 I10 R73.01 2 Reference Guidelines*: Desirable: ........... < 200 mg/dL Borderline High: ..... 200-239 mg/dL High: ................ >=240 mg/dL * The National Cholesterol Education Program (NCEP) 3 Reference Guidelines*: Normal: ............. < 150 mg/dL Borderline High: .... 150-199 mg/dL High: ............... 200-499 mg/dL Very High: .......... > 500 mg/dL * Source: National Cholesterol Education Program (NCEP) 4 Reference Guidelines*: Low HDL: ..... < 40 mg/dL Normal: ..... 40-60 mg/dL Desirable: ... > 60 mg/dL *The National Cholesterol Education Program(NCEP) 5 Reference Guidelines*: Optimal:........... <100 mg/dL Near Optimal....... 100-129 mg/dL Borderline High.... 130-159 mg/dL High............... 160-189 mg/dL Very High.......... >=190 mg/dL * Source: National Cholesterol Education Program (NCEP) 6 Note: Persistent reduction for 3 months or more in an eGFR <60 mL/min/1.73 m2 defines CKD. Patients with eGFR values >/=60 mL/min/1.73 m2 may also have CKD if evidence of persistent proteinuria is present. The original MDRD equation for estimated GFR is not valid for patients less than 18 years of age. Additional information may be found at www.kdoqi.org. 7 Elevated levels of HbA1c suggest the need for more aggressive treatment of glycemia. The [place] [employer] recommends that a primary goal of therapy should be a HbA1c of <7% and that physicians should re-evaluate the treatment regimen in patients with HbA1c values consistently >8%. 8 Updated reference range on new analyzer 9 Updated reference range on new analyzer 10 Concerning GFR Guidelines: Normal function or mild renal disease, if clinically at risk: >/=60 mL/min Moderately decreased: 30-59 Severely decreased: 15-29 Renal failure: <15 Glomerular Filtration Rate (GFR) is estimated based on the MDRD equation, which assumes a steady state for creatinine as recommended by the National Kidney Disease Education Program in conjunction with the National Institutes of Health and the National Kidney Foundation. Clinical conditions in which it may be necessary to measure GFR by using clearance methods include extremes of age and body size, severe malnutrition or obesity, diseases of skeletal muscle, paraplegia or quadriplegia, vegetarian diet, rapidly changing kidney function, and calculation of the dose of potentially toxic drugs that are excreted by the kidneys. 11 Concerning GFR Guidelines for Americans: Normal function or mild renal disease, if clinically at risk: >/=60 mL/min Moderately decreased: 30-59 Severely decreased: 15-29 Renal failure: <15 12 Updated Reference Range 13 Per NCEP ATP III Guidelines: Results lower than 40 mg/dL are suggestive of increased risk for coronary artery disease. Results > or=to 60 mg/dL are considered a negative risk factor. 14 Per NCEP ATP III Guidelines: Normal Population <130 Patients with medical conditions: CHD/DM Optimal: <100 Borderline high: 130-159 High: 160-189 Very high: >189 15 VERY BAD SORE THROAT 16 Note: Persistent reduction for 3 months or more in an eGFR <60 mL/min/1.73 m2 defines CKD. Patients with eGFR values >/=60 mL/min/1.73 m2 may also have CKD if evidence of persistent proteinuria is present. The original MDRD equation for estimated GFR is not valid for patients less than 18 years of age. Additional information may be found at www.kdoqi.org. 17 Updated reference range on new analyzer 18 Updated reference range on new analyzer 19 Concerning GFR Guidelines: Normal function or mild renal disease, if clinically at risk: >/=60 mL/min Moderately decreased: 30-59 Severely decreased: 15-29 Renal failure: <15 Glomerular Filtration Rate (GFR) is estimated based on the MDRD equation, which assumes a steady state for creatinine as recommended by the National Kidney Disease Education Program in conjunction with the National Institutes of Health and the National Kidney Foundation. Clinical conditions in which it may be necessary to measure GFR by using clearance methods include extremes of age and body size, severe malnutrition or obesity, diseases of skeletal muscle, paraplegia or quadriplegia, vegetarian diet, rapidly changing kidney function, and calculation of the dose of potentially toxic drugs that are excreted by the kidneys. 20 Concerning GFR Guidelines for Americans: Normal function or mild renal disease, if clinically at risk: >/=60 mL/min Moderately decreased: 30-59 Severely decreased: 15-29 Renal failure: <15 21 Updated reference range on new analyzer 22 Per NCEP ATP III Guidelines: Results lower than 40 mg/dL are suggestive of increased risk for coronary artery disease. Results > or=to 60 mg/dL are considered a negative risk factor. 23 Per NCEP ATP III Guidelines: Normal Population <130 Patients with medical conditions: CHD/DM Optimal: <100 Borderline high: 130-159 High: 160-189 Very high: >189 24 Fastin hours 25 Updated reference range on new analyzer 26 Updated reference range on new analyzer 27 Concerning GFR Guidelines for Americans: Normal function or mild renal disease, if clinically at risk: >/=60 mL/min Moderately decreased: 30-59 Severely decreased: 15-29 Renal failure: <15 28 Concerning GFR Guidelines: Normal function or mild renal disease, if clinically at risk: >/=60 mL/min Moderately decreased: 30-59 Severely decreased: 15-29 Renal failure: <15 Glomerular Filtration Rate (GFR) is estimated based on the MDRD equation, which assumes a steady state for creatinine as recommended by the National Kidney Disease Education Program in conjunction with the National Institutes of Health and the National Kidney Foundation. Clinical conditions in which it may be necessary to measure GFR by using clearance methods include extremes of age and body size, severe malnutrition or obesity, diseases of skeletal muscle, paraplegia or quadriplegia, vegetarian diet, rapidly changing kidney function, and calculation of the dose of potentially toxic drugs that are excreted by the kidneys. 29 Updated reference range on new analyzer 30 RL- gold tube 31 Concerning GFR Guidelines: Normal function or mild renal disease, if clinically at risk: >/=60 mL/min Moderately decreased: 30-59 Severely decreased: 15-29 Renal failure: <15 Glomerular Filtration Rate (GFR) is estimated based on the MDRD equation, which assumes a steady state for creatinine as recommended by the National Kidney Disease Education Program in conjunction with the National Institutes of Health and the National Kidney Foundation. Clinical conditions in which it may be necessary to measure GFR by using clearance methods include extremes of age and body size, severe malnutrition or obesity, diseases of skeletal muscle, paraplegia or quadriplegia, vegetarian diet, rapidly changing kidney function, and calculation of the dose of potentially toxic drugs that are excreted by the kidneys. 32 Concerning GFR Guidelines for Americans: Normal function or mild renal disease, if clinically at risk: >/=60 mL/min Moderately decreased: 30-59 Severely decreased: 15-29 Renal failure: <15 33 Per NCEP ATP III Guidelines: Results lower than 40 mg/dL are suggestive of increased risk for coronary artery disease. Results > or=to 60 mg/dL are considered a negative risk factor. 34 Per NCEP ATP III Guidelines: Normal Population <130 Patients with medical conditions: CHD/DM Optimal: <100 Borderline high: 130-159 High: 160-189 Very high: >189 35 Not Detected NOT DETECTED - A negative result does not rule out the presence of PCR inhibitors in the patient specimen or assay specific nucleic acid in concentrations below the level of detection by the assay. The CDC considers blood and urine samples to be suboptimal for the detection for Borrelia by PCR. Positive results do not necessarily represent active disease. INTERPRETIVE INFORMATION: Borrelia Species DNA Detection by PCR Test developed and characteristics determined by [facility]. See Compliance Statement B: [facility] Performed by [facility], [address] [place] [id number] [email or web address], Mike Gutierrez MD, Lab. Director Unless otherwise specified, testing performed by [facility] [address] [place] [phone] Aguilera by 01/04/16 37 Concerning GFR Guidelines for Americans: Normal function or mild renal disease, if clinically at risk: >/=60 mL/min Moderately decreased: 30-59 Severely decreased: 15-29 Renal failure: <15 38 Concerning GFR Guidelines: Normal function or mild renal disease, if clinically at risk: >/=60 mL/min Moderately decreased: 30-59 Severely decreased: 15-29 Renal failure: <15 Glomerular Filtration Rate (GFR) is estimated based on the MDRD equation, which assumes a steady state for creatinine as recommended by the National Kidney Disease Education Program in conjunction with the National Institutes of Health and the National Kidney Foundation. Clinical conditions in which it may be necessary to measure GFR by using clearance methods include extremes of age and body size, severe malnutrition or obesity, diseases of skeletal muscle, paraplegia or quadriplegia, vegetarian diet, rapidly changing kidney function, and calculation of the dose of potentially toxic drugs that are excreted by the kidneys. 39 Fastin hours 40 Concerning GFR Guidelines: Normal function or mild renal disease, if clinically at risk: >/=60 mL/min Moderately decreased: 30-59 Severely decreased: 15-29 Renal failure: <15 Glomerular Filtration Rate (GFR) is estimated based on the MDRD equation, which assumes a steady state for creatinine as recommended by the National Kidney Disease Education Program in conjunction with the National Institutes of Health and the National Kidney Foundation. Clinical conditions in which it may be necessary to measure GFR by using clearance methods include extremes of age and body size, severe malnutrition or obesity, diseases of skeletal muscle, paraplegia or quadriplegia, vegetarian diet, rapidly changing kidney function, and calculation of the dose of potentially toxic drugs that are excreted by the kidneys. 41 Concerning GFR Guidelines for Americans: Normal function or mild renal disease, if clinically at risk: >/=60 mL/min Moderately decreased: 30-59 Severely decreased: 15-29 Renal failure: <15 42 Per NCEP ATP III Guidelines: Results lower than 40 mg/dL are suggestive of increased risk for coronary artery disease. Results > or=to 60 mg/dL are considered a negative risk factor. 43 Per NCEP ATP III Guidelines: Normal Population <130 Patients with medical conditions: CHD/DM Optimal: <100 Borderline high: 130-159 High: 160-189 Very high: >189 44 Concerning GFR Guidelines for Americans: Normal function or mild renal disease, if clinically at risk: >/=60 mL/min Moderately decreased: 30-59 Severely decreased: 15-29 Renal failure: <15 45 Concerning GFR Guidelines: Normal function or mild renal disease, if clinically at risk: >/=60 mL/min Moderately decreased: 30-59 Severely decreased: 15-29 Renal failure: <15 Glomerular Filtration Rate (GFR) is estimated based on the MDRD equation, which assumes a steady state for creatinine as recommended by the National Kidney Disease Education Program in conjunction with the National Institutes of Health and the National Kidney Foundation. Clinical conditions in which it may be necessary to measure GFR by using clearance methods include extremes of age and body size, severe malnutrition or obesity, diseases of skeletal muscle, paraplegia or quadriplegia, vegetarian diet, rapidly changing kidney function, and calculation of the dose of potentially toxic drugs that are excreted by the kidneys. 46 Note: Persistent reduction for 3 months or more in an eGFR <60 mL/min/1.73 m2 defines CKD. Patients with eGFR values >/=60 mL/min/1.73 m2 may also have CKD if evidence of persistent proteinuria is present. The original MDRD equation for estimated GFR is not valid for patients less than 18 years of age. Additional information may be found at www.kdoqi.org. 47 FASTING schedule c architect - 8 am lab- letter to follow. schedule f/u with me in 1 month 48 FASTING schedule c architect - 8 am lab- letter to follow. schedule f/u with me in 1 month 49 Performed at: [facility] [id number] [employer] Operator: Mary Jane Chan MD, Phone: [phone] 50 < 5%=non AMI 5 - 10%=borderline for AMI > 10%=positive for AMI FOR DIAGNOSTIC PURPOSES, THE CK-MB RESULT (MASS AND RELATIVE PERCENT INDEX) SHOULD BE USED IN CONJUNCTION WITH OTHER PERTINENT CLINICAL DATA. 51 Performed at: [facility] [address] [id number] [employer] Operator: Mary Jane Chan MD, Phone: [phone] 52 OPERATION/PROCEDURE Colonoscopy DIAGNOSIS: PART 1: "SIGMOID AND RECTAL POLYPECTOMIES": HYPERPLASTIC POLYP, EARLY. PART 2: "CECAL POLYPECTOMY": HYPERPLASTIC POLYP. WYS/clf GROSS Part 1; "SIGMOID AND RECTAL POLYPS". The specimen is received in an appropriately labeled container. This contains two rounded singleton colored pieces of soft tissue measuring up to 0.4 cm. or smaller; filtered and submitted in toto within a single cassette. Part 2; "CECAL POLYPS". The specimen is received in an appropriately labeled container. This contains two rounded pink colored pieces of soft tissue measuring up to 0.2 cm. or smaller; filtered and submitted in toto within a single cassette. WS/clf MICROSCOPIC Part 1: Sections show colonic mucosa with tubular glands lined by goblet type columnar cells with abundant mucin production. The glands have an incomplete stellate appearance. Part 2: Sections show colonic mucosa lined by an increased number of goblet cells. The glands have a serrated, saw tooth appearance. The nuclei are bland, and basal. PRE OPERATIVE DIAGNOSIS Familty history of colon cancer, history of polyp REVIEW CODE CODE: I ----- DEAN Vasquez MD 02/27/12 1356 ----- 53 QUERY: @[facility] Pat ID: QUERY: @[facility] Req #: 54 QUERY: @[facility] Pat ID: QUERY: @[facility] Req #: [address] carlos FAX Randolph Carlos 56 Normal Range: Male: <4.98 Female: <4.45 57 QUERY: @[facility] Pat ID: QUERY: @[facility] Req #: 58 0 - 0.6 NG/ML: NO EVIDENCE OF MYOCARDIAL INJURY 0.7 - 1.5 NG/ML: MILD ELEVATION, SUGGESTING POSSIBLE MYOCARDIAL INJURY > 1.5 NG/ML: CONSISTENT WITH MYOCARDIAL INJURY 59 QUERY: @[facility] Pat ID: QUERY: @[facility] Req #: 60 QUERY: @[facility] Pat ID: QUERY: @[facility] Req #: 61 0 - 0.6 NG/ML: NO EVIDENCE OF MYOCARDIAL INJURY 0.7 - 1.5 NG/ML: MILD ELEVATION, SUGGESTING POSSIBLE MYOCARDIAL INJURY > 1.5 NG/ML: CONSISTENT WITH MYOCARDIAL INJURY 62 Is patient on heparin protocol? N Is patient on anticoagulants? Unknown QUERY: @[facility] Pat ID: QUERY: @[facility] Req #: QUERY: Anticoagulant Therapy? QUERY: Date of Last Dose: QUERY: Time of Last Dose: 63 QUERY: @[facility] Pat ID: QUERY: @[facility] Req #: 64 THERAPEUTIC INR RANGE: 2.0 - 3.0 DVT, Pulmonary embolus, prophylaxis against venous thrombosis or systemic embolization in high risk patients. 2.5 - 3.5 Mechanical heart valves 65 QUERY: @[facility] Pat ID: QUERY: @[facility] Req #: 66 0 - 0.6 NG/ML: NO EVIDENCE OF MYOCARDIAL INJURY 0.7 - 1.5 NG/ML: MILD ELEVATION, SUGGESTING POSSIBLE MYOCARDIAL INJURY > 1.5 NG/ML: CONSISTENT WITH MYOCARDIAL INJURY 67 08/05/10 LAB.DMR MANUAL DIFF NEEDED 68 QUERY: @[facility] Pat ID: QUERY: @[facility] Req #: 69 Note: Persistent reduction for 3 months or more in an eGFR <60 mL/min/1.73 m2 defines CKD. Patients with eGFR values >/=60 mL/min/1.73 m2 may also have CKD if evidence of persistent proteinuria is present. The original MDRD equation for estimated GFR is not valid for patients less than 18 years of age. Additional information may be found at www.kdoqi.org. 70 0 - 0.6 NG/ML: NO EVIDENCE OF MYOCARDIAL INJURY 0.7 - 1.5 NG/ML: MILD ELEVATION, SUGGESTING POSSIBLE MYOCARDIAL INJURY > 1.5 NG/ML: CONSISTENT WITH MYOCARDIAL INJURY 71 FASTING 72 FASTING QUERY: @[facility] Pat ID: QUERY: @[facility] Req #: 73 Normal Range: Male: <4.98 Female: <4.45 74 Specimen: [id number] - TEST: PT IS PATIENT ON HEPARIN PROTOCOL ? N IS PATIENT ON ANTICOAGULANTS? Arixtra TEST: PT QUERY: Anticoagulant Therapy? QUERY: Date of Last Dose: QUERY: Time of Last Dose: 75 Note: Persistent reduction for 3 months or more in an eGFR <60 mL/min/1.73 m2 defines CKD. Patients with eGFR values >/=60 mL/min/1.73 m2 may also have CKD if evidence of persistent proteinuria is present. The original MDRD equation for estimated GFR is not valid for patients less than 18 years of age. Additional information may be found at [email or web address]. 76 05/21/09 LAB.[facility] Deleted by [facility] 77 schedule within next month 78 Normal Range: Male: <4.98 Female: <4.45 79 Normal Range: Male: <4.98 Female: <4.45 80 FASTING schedule for 2 weeks Procedures Date Code Description Status 05/02/2019 23737 Electrocardiogram Complete Completed 03/03/2017 31299383 Colonoscopy Completed 02/02/2014 72081 Screening Hearing Test Completed 02/26/2012 67475 Colonoscopy Flexible Diagnostic Completed 02/26/2012 76839000 Colonoscopy Completed 06/04/2010 39957 Electrocardiogram Complete Completed 11/21/2005 43836 Colonoscopy Flexible Diagnostic Completed 05/25/1998 19143 Colonoscopy Flexible Diagnostic Completed Encounters Type Date Location Provider Dx Diagnosis Office Visit 10/29/2018 [facility] Jason Wilkins DO I10 Essential (primary) 8:45a hypertension R73.01 Impaired fasting glucose E78.2 Mixed hyperlipidemia M25.519 Pain in unspecified shoulder N40.0 Benign prostatic hyperplasia without lower urinry tract symp I25.10 Athscl heart disease of [place] coronary artery w/o ang pctrs G47.30 Sleep apnea, unspecified E66.09 Other obesity due to excess calories N62 Hypertrophy of breast R00.2 Palpitations M25.569 Pain in unspecified knee R55 Syncope and collapse Z68.41 Body mass index (BMI) 40.0-44.9, adult Office Visit 04/28/2018 11:15a [facility] Jason Wilkins DO Z00.00 Encntr for general adult medical exam w/o abnormal findings I10 Essential (primary) hypertension R73.01 Impaired fasting glucose E78.2 Mixed hyperlipidemia M25.519 Pain in unspecified shoulder N40.0 Benign prostatic hyperplasia without lower urinry tract symp I25.10 Athscl heart disease of [place] coronary artery w/o ang pctrs G47.30 Sleep apnea, unspecified E66.09 Other obesity due to excess calories N62 Hypertrophy of breast R00.2 Palpitations Z13.89 Encounter for screening for other disorder M25.569 Pain in unspecified knee Z68.41 Body mass index (BMI) 40.0-44.9, adult Office Visit 08/06/2017 1:00p [facility] Jason Wilkins DO I10 Essential ( primary) hypertension R73.01 Impaired fasting glucose E78.2 Mixed hyperlipidemia M25.519 Pain in unspecified shoulder N40.0 Benign prostatic hyperplasia without lower urinry tract symp I25.10 Athscl heart disease of [place] coronary artery w/o ang pctrs G47.30 Sleep apnea, unspecified E66.09 Other obesity due to excess calories N62 Hypertrophy of breast R00.2 Palpitations M25.569 Pain in unspecified knee Office Visit 04/28/2017 3:30p [facility] Aleenalenfelix Tanvi, S30.813A Abrasion of scrotum [employer] and testes, 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 Z23 Encounter for immunization Office Visit 02/04/2017 9:00a [facility] Jason Wilkins, DO Z00.01 Encounter for general adult medical exam w abnormal findings I10 Essential (primary) hypertension E78.2 Mixed hyperlipidemia M25.519 Pain in unspecified shoulder N40.0 Benign prostatic hyperplasia without lower urinry tract symp I25.10 Athscl heart disease of [place] coronary artery w/o ang pctrs G47.30 Sleep apnea, unspecified E66.09 Other obesity due to excess calories N62 Hypertrophy of breast R00.2 Palpitations M25.569 Pain in unspecified knee Z12.11 Encounter for screening for malignant neoplasm of colon R73.01 Impaired fasting glucose Office Visit 01/10/2017 10:15a [facility] Angélica Edmond MD R21 Rash and other nonspecific skin eruption I10 Essential (primary) hypertension Office Visit 07/18/2016 8:30a [facility] Jason Wilkins, I10 Essential ( primary) hypertension E78.2 Mixed hyperlipidemia N40.0 Benign prostatic hyperplasia without lower urinry tract symp I25.10 Athscl heart disease of [place] coronary artery w/o ang pctrs G47.30 Sleep apnea, unspecified E66.09 Other obesity due to excess calories N62 Hypertrophy of breast R00.2 Palpitations M25.519 Pain in unspecified shoulder Office Visit 01/03/2016 8:00a [facility] Jason Wilkins, I10 Essential ( primary) hypertension E78.2 Mixed hyperlipidemia N40.0 Enlarged prostate without lower urinary tract symptoms I25.10 Athscl heart disease of [place] coronary artery w/o ang pctrs G47.30 Sleep apnea, unspecified E66.09 Other obesity due to excess calories N62 Hypertrophy of breast R00.2 Palpitations Office Visit 07/04/2015 8:30a [facility] Jason Wilkins, DO I10 Essential ( primary) hypertension E78.2 Mixed hyperlipidemia N40.0 Enlarged prostate without lower urinary tract symptoms I25.10 Athscl heart disease of [place] coronary artery w/o ang pctrs G47.30 Sleep apnea, unspecified E66.09 Other obesity due to excess calories N62 Hypertrophy of breast M25.561 Pain in RIGHT knee Office Visit 12/13/2014 8:00a [facility] Jason Wilkins DO 401.1 Hypertension Benign 272.2 Hyperlipidemia Mixed 600.20 Benign Localized Hyperplasia Prostate W/O Urinary Obstruct 414.00 Coronary Atherosclerosis Unspec Type Vessel [place]/Graft 780.57 Apnea, Unspecified Sleep Apnea 278.00 Obesity Unspec 719.46 Pain Joint Lower Leg 611.1 Hypertrophy Breast Plan of Treatment Future Appointment(s):10/25/2019 8:10 am - Schedule, Laboratory at [facility]2019 8:30 am - Jason Wilkins DO at [facility]05/02/2019 - Jason Wilkins DOZ00.00 Encntr for general adult medical exam w/o abnormal findingsNew Labs:Liver Function Tests, Scheduled: 04/24/20LDL Cholesterol Profile, Scheduled: Follow up:Blood work in 6 months and will follow up with me a couple of days later.I10 Essential (primary) hypertensionNew Labs:Basic (BMP), Scheduled: 04/24yroid Stim Hormone, Scheduled: 04/24/20CBS W/Automated Diff, Scheduled: R73.01 Impaired fasting glucoseNew Labs:Hemoglobin A1c, Scheduled: E78.2 Mixed zlowvyflcehfvwZ78.519 Pain in unspecified zokpaadpH58.0 Benign prostatic hyperplasia without lower urinary tract symI25.10 Atherosclerotic heart disease of [place] coronary artery withG47.30 Sleep apnea, suijljgetkmM52 Hypertrophy of dxpnhbI32.2 HkovafeaniexH90.569 Pain in unspecified kneeR55 Syncope and ojvolxbgL14.9 Obesity, unspecifiedComments:The patient had lost around 11lbs of body weight since the previous visit and he currently weighs around 250lbs. A detailed discussion was had with the patient regarding his body weight and BMI. He was made aware about the health hazards of obesity including diabetes, hypertension, cardiac diseases,and other various risk factors. He was advised to maintain a healthy and low-calorie diet and a regular exercise regimen which will help him lose weight.R30.0 DysuriaComments: Discussed with the patient that the symptoms are likely due to prostatitis. Prescribed Bactrim DS twice a day for 2 weeks to take as directed. Advised the patient to follow up with his Urologist as scheduled. We will continue to monitor.R06.02 Shortness of breathComments:Advised the patient to follow up with Dr. Aguilera for his shortness of breath. We will continue to monitor.R07.9 Chest pain, beicuolhgjdZ41.38 Body mass index (BMI) 38.0-38.9, adultComments:His BMI is at 38.6. He was strongly encouraged to lose weight with low-calorie diet and exercises.We will continue to monitor his weight and BMI periodically.AllNew Medication:Sulfamethoxazole/Trimethoprim DS 800-160 mg - 1 by mouth twice a day
--- OUTSIDE RECORDS SUMMARY | 2019-05-24 23:32 | XMS REPORT | Continuity of Care Document ---
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 Payers Date Identification Numbers Payment Provider Subscriber Effective: 2012 Policy Number: [id number] Medicare Part B Rick Gunter PayID: [id number] [address] [place] [address] Effective: 2011 Policy Number: [id number] [employer] Rick Gunter PayID: [id number] [address] [address] [place] [address] Problems Active Problems Provider Date Coronary arteriosclerosis [...] Comments Sex Unknown Marital Status 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 Tobacco Use Start: Unknown Never Smoked Cigarettes Tobacco Use Start: Unknown Patient has never smoked Smoking Status Reviewed: 05/02/19 Patient has never smoked Allergies, Adverse Reactions, Alerts Active Allergies Reaction Severity Comments Date Narcotic 12/11/2014 Medications Active Medications SIG Qnty Indications Ordering Provider Date Sulfamethoxazole/Trime 1 by mouth 28tabs Jason Wilkins, DO 05/02/2019 thoprim DS twice a day 800-160mg [...] E78.2 Jason Wilkins, 20mg DO Tablets I25.10 [place] 50 1000mg 1 po qd E78.2 Unknown [...] take 1 tablet by 180tabs I10 Jason Wilkins, 09/17 - ER mouth twice 10/23/2018 100mg [...] CPT Code Status Date Vaccine Lot # [id number] Given 04/28/2017 Tdap (Adacel) Ages 7 And Above Only [id number] Refused 10/29/2018 Shingrix (Shingles) Zoster Vaccine HZV, Recombinant , Subunit, Adj [id number] Refused 08/27/2018 Fluzone Highdose Age 65 And Over Preservative & Antibiotic Free 08294 Refused 04/28/2018 Zoster (Zostavax) [id number] Refused 04/28/2018 Pneumococcal 23 Immunization Adult Or Immunosuppressed Patient 04824 Refused 04/28/2018 Prevnar 13 Pneumococal Conjugate Vaccine [...] Result H/L Range Note LDL Cholesterol 04/26/2019 [facility] Cholesterol 122 mg/ dL <200 1, 2 Profile (315)- - Triglycerides 54 mg/dL <150 3 HDL Cholesterol 42 mg/dL >40 4 LDL-Cholesterol 69 mg/dL < 100 5 Basic (BMP) 04/26/2019 [facility] Glucose 107 mg/dL High 74-106 [...] mg/dL N 8.5-10.1 CBC with Auto 04/26/2019 [facility] White Blood 5.1 K/uL N 3.4-10.5 [...] 33.0-73.0 Lymph % 33.2 % N 20.0-42.0 [place] % 12.5 % High 0.0-10.0 Eo% 3.8 % N 0.0-6.6 Bas% 0.2 % N 0.0-1.1 Immature Grans 0.2 % N 0.0-5.0 NRBC % 0.0 /100WBC < 10/ 100 WBC Neut# 2.54 K/uL N 1.8-7.0 Lymph # 1.68 K/uL N 1.0-4.0 [place] # 0.63 K/uL N 0.0-0.8 Eos # 0.19 K/uL N 0.0-0.5 Baso # 0.01 K/uL N 0.0-0.1 Immature Grans Absolute 0.01 K/uL NRBC # 0.00 K/uL Laboratory test 04/26/2019 [facility] Thyroid Stim 1.83 uIU/mL N 0.30-4.20 finding (315)- - Hormone Liver Function 04/26/2019 [facility] Total Protein 7.4 g/ dL N 6.4-8.2 Tests (315)- - Albumin 3.9 g/dL N 3.4-5.0 Globulin 3.5 g/dL N 1.9-4.3 Alb/Glob 1.1 ratio Bilirubin,Total 0.3 mg/dL N 0.2-1.0 Bilirubin,Direct 0.1 mg/dL N 0.0-0.2 Bilirubin,Indirect 0.2 mg/dL N 0.0-0.9 Sgot/Ast 28 U/L N 15-37 SGPT/Alt 42 U/L N 12-78 Alkaline Phosphatase 57 U/L N 45-117 Hemoglobin A1c 04/26/2019 [facility] Glycohemoglobin (A1c ) 6.2 % [...] 10*3/uL 4.1 - 11.0 Basic (BMP) 05/12/2018 [facility] Sodium 143 mmol/L 135-146 8 Potassium 4.3 mmol/L 3.5-5.2 Chloride# 105 mmol/L 97-110 9 Carbon Dioxide 28 mmol/L 24-34 Glucose 116 mg/dL High 70-105 BUN 19 mg/dL 6-26 Creatinine 0.9 mg/dL 0.5-1.4 Calcium 9.4 mg/dL 8.5-10.2 Non Courtney Egfr >60 >60 10 [place] Egfr >60 >60 11 Anion Gap 10 mmol/L 5-15 12 [facility] A1[facility] 6.3 % High 4.1-5.9 Estimated Average Glucose Calc 134 mg/dL 71-140 Lipid Treatment [facility] Cholesterol 148 mg/dL 50-199 Triglycerides 116 mg/dL 30-200 HDL 41 mg/dL 29-71 13 Chol/ HDL Ratio 3.6 ratio Low 4.0-6.7 VLDL 23 mg/dL 2-29 LDL (Calc) 84 mg/dL 20-99 14 Alt 35 U/L 3-42 Ast 22 U/L 8-42 Basic Metabolic Panel 03/07/2018 [facility] Glucose 98 mg /dL N [...] 9.0 mg/dL N 8.5-10.1 CBS W/Automated 03/07/2018 [facility] White Blood 13.3 K/ uL [...] 33.0-73.0 Lymph % 11.9 % Low 20.0-42.0 [place] % 10.9 % High 0.0-10.0 Eo% 2.0 % N 0.0-6.6 Bas% 0.1 % N 0.0-1.1 Neut# 9.98 K/uL High 1.8-7.0 Lymph # 1.58 K/uL N 1.0-4.0 [place] # 1.44 K/uL High 0.0-0.8 Eos # 0.26 K/uL N 0.0-0.5 Baso # 0.01 K/uL N 0.0-0.1 Slide Review 03/07/2018 [facility] Slide Review DIFF ORDERED (315)- - Differential-WBC 03/07/2018 [facility] Total Cells 100 # CELLS Confirm (315)- - Counted Band% 5 % N 0-8 Neutrophils% 63 % N 33-73 Lymph% 15 % Low 20-42 Atypical Lymph% 4 % N 0-7 Monocyte% 9 % N 0-10 Eosinophil% 4 % N 0-5 Platelet Estimate NORMAL RBC Morphology NORMAL CBC With Auto Diff 08/07/2017 [facility] WBC 6.3 K/uL 4.1-11.0 RBC 5.03 M/uL [...] 1.04 uIU/mL 0.35-4.94 Comprehensive Metabolic (CMP) 12/13/2014 [facility] Sodium 141 mmol/L 134- 142 Potassium 4.6 [...] 0.0-4.0 % Lymph 38 % 20-44 % [place] 10.8 % High 2.0-10.0 % [place] 47 % Low 50-70 Absolute Baso. 0.1 K/ul 0.0-0.3 Absolute Eos. 0.2 K/ul 0.0-0.5 Absolute Lymph. 2.4 K/ul 0.8-4.8 Absolute [place]. 0.7 K/ul 0.1-1.0 Absolute [place]. 2.94 K/ul [...] U/L 16-40 54 LDL Cholesterol Profile 06/03/2011 [facility] Import Cholesterol 146 mg/dL 120-200 HDL Cholesterol 40 mg/dL 32-96 LDL-Cholesterol 72 mg/dL 62-185 Triglycerides 168 mg/dL 0-210 Lipid Panel 10/30/2010 [facility] Import Chol/HDL Ratio 4.3 55, 56 Cholesterol 190 mg/dL 50-199 HDL Cholesterol 44 mg/dL 29-67 LDL 110 mg/dL 20-129 Triglycerides 180 mg/dL 30-249 VLDL Cholesterol 36 mg/dL Laboratory test finding 10/30/2010 [facility] Import Alt 44 U/L 21-72 Anion Gap 15 mmol/L 10-20 Ast 27 U/L 17-59 BUN 22 mg/dL High 9-21 BUN/CR Ratio 26.1 Ratio High 12-20 Calcium 9.6 mg/dL 8.7-10.5 Carbon Dioxide 31 mmol/L High 22-30 Chloride 101 mmol/L 98-107 Creatinine, Serum 0.8 mg/dL 0.8-1.5 Glucose 92 mg/dL 75-110 Potassium 4.3 mmol/L 3.6-5.0 Sodium 142 mmol/L 137-145 Laboratory test finding 08/06/2010 [facility] Import CK 52 U/L 26-190 57 Troponin-I 0.1 ng/mL 0.0-0.6 58 Laboratory test 08/06/2010 [facility] Import Sedimentation Rate 35 mm/hr High 0-20 59 finding CK 52 U/L 26-190 60 Troponin-I 0.1 ng/mL 0.0-0.6 61 Laboratory test 08/05/2010 [facility] Import Act Partial 31.3 s 23.4-37.4 62 finding Thrombo Time CK 49 U/L 26-190 63 Inr 1.3 High 0.8-1.2 64 Magnesium 1.6 mg/dL Low 1.7-2.3 65 Protime 16.6 s High 11.7-15.1 Troponin-I 0.0 ng/mL 0.0-0.6 66 Laboratory test finding 08/05/2010 [facility] Import Alb/Glob 1.0 Albumin 3.8 g/dL 3.5-5.0 [...] 31.7-36.0 Mean Platelet Volume 10.1 fL 6.6-10.6 [place] # 0.8 K/uL High 0.0-0.6 [place] % 8.5 % 0.0-10.0 Neut# 6.9 K/uL [...] 0-7 Urine Screen DNR 76 Urine Specific [place]ult >=1.030 1.010-1.030 Urine Urobilinogen - Dipstick 0.2 [...] for more aggressive treatment of glycemia. The [place] [employer] recommends that a primary goal [...] PCR Test developed and characteristics determined by [facility]. See Compliance Statement B: [facility] Performed by [facility], [address] [place] [id number] [email or web address], Mike Gutierrez MD, Lab. Director Unless otherwise specified, testing performed by [facility] [address] [place] [phone] Aguilera by [...] be found at 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 schedule f/u with me in 1 month 49 Performed at: [facility] [id number] Recreational Director: Mary Jane Chan MD, Phone: [phone] 50 < 5%=non AMI 5 - 10%=borderline for AMI > 10%=positive for AMI FOR DIAGNOSTIC PURPOSES, THE CK-MB RESULT (MASS AND RELATIVE PERCENT INDEX) SHOULD BE USED IN CONJUNCTION WITH OTHER PERTINENT CLINICAL DATA. 51 Performed at: [facility] [address] [id number] Recreational Director: Mary Jane Chan MD, Phone: [phone] OPERATION/PROCEDURE Colonoscopy DIAGNOSIS: PART 1: "SIGMOID [...] Vasquez MD 02/27/12 1356 ----- 53 QUERY: @[facility] Pat ID: QUERY: @[facility] Req #: 54 QUERY: @[facility] Pat ID: QUERY: @[facility] Req #: [address] carlos FAX Randolph Carlos 56 Normal Range: Male: <4.98 Female: <4.45 57 QUERY: @[employer] Pat ID: QUERY: @[facility] Req #: 58 0 - 0.6 NG/ML: NO EVIDENCE OF MYOCARDIAL INJURY 0.7 - 1.5 NG/ML: MILD ELEVATION, SUGGESTING POSSIBLE MYOCARDIAL INJURY > 1.5 NG/ML: CONSISTENT WITH MYOCARDIAL INJURY 59 QUERY: @[facility] Pat ID: QUERY: @[facility] Req #: 60 QUERY: @[facility] Pat ID: QUERY: @[facility] Req #: 61 0 - 0.6 NG/ML: NO EVIDENCE OF MYOCARDIAL INJURY 0.7 - 1.5 NG/ML: MILD ELEVATION, SUGGESTING POSSIBLE MYOCARDIAL INJURY > 1.5 NG/ML: CONSISTENT WITH MYOCARDIAL INJURY 62 Is patient on heparin protocol? N Is patient on anticoagulants? Unknown QUERY: @[facility] Pat ID: QUERY: @[facility] Req #: QUERY: Anticoagulant Therapy? QUERY: Date of Last Dose: QUERY: Time of Last Dose: 63 QUERY: @[facility] Pat ID: QUERY: @[facility] Req #: 64 THERAPEUTIC INR RANGE: 2.0 - 3.0 DVT, Pulmonary embolus, prophylaxis against venous thrombosis or systemic embolization in high risk patients. 2.5 - 3.5 Mechanical heart valves 65 QUERY: @EM[facility] Pat ID: QUERY: @EMR Req #: 66 0 - 0.6 NG/ML: NO EVIDENCE OF MYOCARDIAL INJURY 0.7 - 1.5 NG/ML: MILD ELEVATION, SUGGESTING POSSIBLE MYOCARDIAL INJURY > 1.5 NG/ML: CONSISTENT WITH MYOCARDIAL INJURY 67 08/05/10 [facility] MANUAL DIFF NEEDED 68 QUERY: @EMR Pat ID: QUERY: @EMR Req #: 69 Note: Persistent reduction for [...] MYOCARDIAL INJURY 71 FASTING 72 FASTING QUERY: @EMR Pat ID: QUERY: @EMR Req #: 73 Normal Range: Male: <4.98 Female: <4.45 74 Specimen: [id number] - TEST: PT IS PATIENT ON HEPARIN [...] may be found at [email or web address] 76 05/21/09 [facility] Deleted by [facility] 77 schedule within next month 78 Normal Range: Male: <4.98 Female: <4.45 79 Normal Range: Male: <4.98 Female: <4.45 80 FASTING schedule for 2 weeks Procedures Date Code Description Status 05/02/2019 72792 Electrocardiogram Complete Completed 03/03/2017 [id number] Colonoscopy Completed 02/02/2014 04768 Screening Hearing Test Completed 02/26/2012 00575 Colonoscopy Flexible Diagnostic Completed 02/26/2012 05594741 Colonoscopy Completed 06/04/2010 44916 Electrocardiogram Complete Completed 11/21/2005 41194 Colonoscopy Flexible Diagnostic Completed 05/25/1998 00003 Colonoscopy Flexible Diagnostic Completed Encounters Type Date Location Provider Dx Diagnosis Office Visit 10/29/2018 [facility] Jason Wilkins DO I10 Essential (primary) 8:45a hypertension R73.01 Impaired fasting glucose E78.2 Mixed hyperlipidemia M25.519 Pain in unspecified shoulder N40.0 Benign prostatic hyperplasia without lower urinry tract symp I25.10 [place] heart disease of [place] coronary artery w/o ang pctrs G47.30 Sleep apnea, unspecified E66.09 Other obesity due to excess calories N62 Hypertrophy of breast R00.2 Palpitations M25.569 Pain in unspecified knee R55 Syncope and collapse Z68.41 Body mass index (BMI) 40.0-44.9, adult Office Visit 04/28/2018 11:15a [facility] Jason Wilkins DO Z00.00 Encntr for general adult medical exam w/o abnormal findings I10 Essential (primary) hypertension R73.01 Impaired fasting glucose E78.2 Mixed hyperlipidemia M25.519 Pain in unspecified shoulder N40.0 Benign prostatic hyperplasia without lower urinry tract symp I25.10 [place]scl heart disease of [place] coronary artery w/o ang pctrs G47.30 Sleep apnea, unspecified E66.09 Other obesity due to excess calories N62 Hypertrophy of breast R00.2 Palpitations Z13.89 Encounter for screening for other disorder M25.569 Pain in unspecified knee Z68.41 Body mass index (BMI) 40.0-44.9, adult Office Visit 08/06/2017 1:00p [facility] Jason Wilkins DO I10 Essential ( primary) hypertension R73.01 Impaired fasting glucose E78.2 Mixed hyperlipidemia M25.519 Pain in unspecified shoulder N40.0 Benign prostatic hyperplasia without lower urinry tract symp I25.10 [place]scl heart disease of [place] coronary artery w/o ang pctrs G47.30 Sleep apnea, unspecified E66.09 Other obesity due to excess calories N62 Hypertrophy of breast R00.2 Palpitations M25.569 Pain in unspecified knee Office Visit 04/28/2017 3:30p [facility] Tanvi Joseph, S30.813A 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, 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 Z23 Encounter for immunization Office Visit 02/04/2017 9:00a [facility] Jason Wilikns, DO Z00.01 Encounter for general adult medical exam w abnormal findings I10 Essential (primary) hypertension E78.2 Mixed hyperlipidemia M25.519 Pain in unspecified shoulder N40.0 Benign prostatic hyperplasia without lower urinry tract symp I25.10 [place]scl heart disease of [place] coronary artery w/o ang pctrs G47.30 Sleep apnea, unspecified E66.09 Other obesity due to excess calories N62 Hypertrophy of breast R00.2 Palpitations M25.569 Pain in unspecified knee Z12.11 Encounter for screening for malignant neoplasm of colon R73.01 Impaired fasting glucose Office Visit 01/10/2017 10:15a [facility] Angélica Edmond MD R21 Rash and other nonspecific skin eruption I10 Essential (primary) hypertension Office Visit 07/18/2016 8:30a [facility] Jason Wilkins, I10 Essential ( primary) hypertension E78.2 Mixed hyperlipidemia N40.0 Benign prostatic hyperplasia without lower urinry tract symp I25.10 Athscl heart disease of [place] coronary artery w/o ang pctrs G47.30 Sleep apnea, unspecified E66.09 Other obesity due to excess calories N62 Hypertrophy of breast R00.2 Palpitations M25.519 Pain in unspecified shoulder Office Visit 01/03/2016 8:00a [facility] Jason Wilkins, I10 Essential ( primary) hypertension E78.2 Mixed hyperlipidemia N40.0 Enlarged prostate without lower urinary tract symptoms I25.10 [place]scl heart disease of [place] coronary artery w/o ang pctrs G47.30 Sleep apnea, unspecified E66.09 Other obesity due to excess calories N62 Hypertrophy of breast R00.2 Palpitations Office Visit 07/04/2015 8:30a [facility] Jason Wilkins, DO I10 Essential ( primary) hypertension E78.2 Mixed hyperlipidemia N40.0 Enlarged prostate without lower urinary tract symptoms I25.10 Athscl heart disease of [place] coronary artery w/o ang pctrs G47.30 Sleep apnea, unspecified E66.09 Other obesity due to excess calories N62 Hypertrophy of breast M25.561 Pain in RIGHT knee Office Visit 12/13/2014 8:00a [facility] Jason Wilkins DO 401.1 Hypertension Benign 272.2 Hyperlipidemia Mixed 600.20 Benign Localized Hyperplasia Prostate W/O Urinary Obstruct 414.00 Coronary Atherosclerosis Unspec Type Vessel [place]/Graft 780.57 Apnea, Unspecified Sleep Apnea 278.00 Obesity Unspec 719.46 Pain Joint Lower Leg 611.1 Hypertrophy Breast Plan of Treatment Future Appointment(s):10/25/2019 8:10 am - Schedule, Laboratory at [facility]2019 8:30 am - Jason Wilkins DO at [facility]05/02/2019 - Jason Wilkins DOZ00.00 Encntr for general adult medical exam w/o abnormal findingsNew Labs:Liver Function Tests, Scheduled: 04/24/20LDL Cholesterol Profile, Scheduled: Follow up:Blood work in 6 months and will follow up with me a couple of days later.I10 Essential (primary) hypertensionNew Labs:Basic (BMP), Scheduled: 04/24yroid Stim Hormone, Scheduled: 04/24/20CBS W/Automated Diff, Scheduled: R73.01 Impaired fasting glucoseNew Labs:Hemoglobin A1c, Scheduled: E78.2 Mixed bebxubmnlkjqxiU75.519 Pain in unspecified iekkbcvgC39.0 Benign prostatic hyperplasia without lower urinary tract symI25.10 Atherosclerotic heart disease of [place] coronary artery withG47.30 Sleep apnea, bndjtiyfnqvS89 Hypertrophy of mjcpsoJ69.2 JoawhnpmtaubE44.569 Pain in unspecified kneeR55 Syncope and eeovlpitM42.9 Obesity, unspecifiedComments:The patient had lost around 11lbs [...] We will continue to monitor.R07.9 Chest pain, gngzafdhsvpW08.38 Body mass index (BMI) 38.0-38.9, adultComments:His BMI is at 38.6. He was strongly encouraged to lose weight with low-calorie diet and exercises.We will continue to monitor his weight and BMI periodically.AllNew Medication:Sulfamethoxazole/Trimethoprim DS 800-160 mg - 1 by mouth twice a day
== END 2019-05-24 21:01 | disposition home or self-care (01) ==
LOC: UCCORT 19:56
DX: S30.861A Insect bite (nonvenomous) of abdominal wall, 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 (principal); W57.XXXA Bitten or stung by nonvenomous insect and other nonvenomous arthropods, 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; Y93.9 Activity, unspecified; Y92.9 Unspecified place or not applicable; N40.0 Benign prostatic hyperplasia without lower urinary tract symptoms; I10 Essential (primary) hypertension; I25.10 Atherosclerotic heart disease of native coronary artery without angina pectoris
CPT/HCPCS: 99212; A9270-GY; G0463